=== PATIENT | male | born 1930 | race Caucasian/White ===

== ENCOUNTER 2017-08-21 09:26 | Emergency (ER) | payer OTHER, BC ==
[2017-08-21] MEDS ORDERED: MIDAZOLAM 2 MG/2 ML VIAL ONE (09:27)
[2017-08-21] MEDS ORDERED: PROPOFOL/EMULSION 500 MG/50 ML BOTTLE IV ONE (09:27)
[2017-08-21 09:33] VITALS: RESP 18; TEMP 97.3
[2017-08-21] MEDS ORDERED: SUGAMMADEX SODIUM 200 MG/2 ML VIAL IVP ONE (09:58)
[2017-08-21] MEDS ORDERED: RANITIDINE 50 MG/2 ML VIAL ONE (09:58)
[2017-08-21] MEDS ORDERED: ROCURONIUM 50 MG/5 ML VIAL ONE (09:58)
[2017-08-21] MEDS ORDERED: ACETAMINOPHEN 500 MG TAB PO ONE (10:18)
--- NOTE | 2017-08-21 10:18 | EDPHY ---
H & P Smoking Status: Former smoker Time Seen by Provider: 08/21/17 10:04 HPI/ROS: CHIEF COMPLAINT: Right rib pain HISTORY OF PRESENT ILLNESS: 86-year-old male with medical history significant for mechanical heart valve, daily warfarin, states that 4 days ago he bent over and so felt a "pop "in his right lower ribs at the anterior axillary line. This pain has been reproducible with palpation, inspiration, coughing ever since. No dyspnea. His taken the single Tylenol which alleviates his pain. The pain is not migrated. Denies: Dyspnea, back or flank pain, direct trauma or fall. REVIEW OF SYSTEMS: A ten point review of systems was performed and is negative with the exception of the items mentioned in the HPI PAST MEDICAL & SURGICAL HISTORY: Mechanical heart valve. Daily warfarin. Coronary artery disease. TIA. Subdural hematoma. Cardiac stenting. SOCIAL HISTORY: non smoker PHYSICAL EXAM (Prior to examination, patient consented to physical exam, hands were washed and my usual and customary physical exam procedures followed) 1) GENERAL: Well-developed, well-nourished, alert and oriented. Appears to be in no acute distress. 2) HEAD: Normocephalic, atraumatic 3) HEENT: Pupils equal, round, reactive to light bilaterally. Sclera anicteric. 4) NECK: Full range of motion, no meningeal signs. No bruit 5) LUNGS: Clear auscultation bilaterally, no wheezes, no rhonchi, no retractions. Chest wall shows no visible signs of trauma, no crepitus. He is tender to palpation right lower ribs caudal to the nipple, anterior axillary line. 6) HEART: Regular rate and rhythm, no murmur, no heave, no gallop. 7) ABDOMEN: No guarding, no rebound, no focal tenderness, negative McBurney's, negative Viera's, negative Rovsing's, negative peritoneal sign, specifically no rash upper quadrant pain 8) MUSCULOSKELETAL: Moving all extremities, no focal areas of tenderness, no obvious trauma. No peripheral edema or discoloration. 9) BACK: No CVA tenderness, no midline vertebral tenderness, no fluctuance, no step-off, no obvious trauma, no visual or palpable abnormality. 10) SKIN: No rash, no petechiae. 11) Psychiatric: Patient is oriented X 3, there is no agitation. DIFFERENTIAL DIAGNOSIS: in no particular order including but limited to pneumothorax, rib fracture, rib contusion, sprain, strain (Chio Weber) Constitutional: Initial Vital Signs Temperature (C) 36.3 C 08/21/17 09:29 Heart Rate 80 08/21/17 09:29 Respiratory Rate 18 08/21/17 09:29 Blood Pressure 160/111 H 08/21/17 09:29 O2 Sat (%) 93 08/21/17 09:29 O2 Delivery Mode Room Air Allergies/Adverse Reactions: No Known Allergies Allergy (Verified 08/21/17 09:28) Home Medications: Medication Instructions Recorded Herbals/Supplements -Info Only 1 ea PO DAILY 09/16/16 Lisinopril [Zestril 5 mg (*)] 5 mg PO DAILY 09/16/16 Warfarin Sodium [Coumadin 5MG (*)] 5 mg PO DAILY16 09/16/16 Amlodipine Besylate 08/21/17 oxyCODONE/APAP 5/325 [Percocet 0.5 tab PO Q6 #7 tab 08/21/17 5/325] MDM/Departure - MDM Imaging Results: Images reviewed myself (Chio Weber) Procedures: Procedure: Incentive spirometer Indication: Chest wall pain Indications risks benefits of incentive spirometer discussed with patient instructed on how to use, recommend he use every hour while awake. (Chio Weber) Medications Given: Discontinued Medications Acetaminophen (Tylenol) 1,000 mg PO EDNOW ONE Stop: 08/21/17 10:19 Last Admin: 08/21/17 10:23 Dose: 1,000 mg ED Course/Re-evaluation: 10:18 a.m.: Offered analgesia he requests Tylenol only. Old medical records reviewed. Care of patient under supervision of secondary supervising physician Dr Ortega with whom I discussed care . 11:18 a.m.: Re-evaluation, discussed his chest x-ray and rib x-ray showing no definitive fracture, no pneumothorax. Doubt cardiac etiology. I offered analgesia however he prefers Tylenol only. He has been given incentive spirometer and instructions on how to use this. Do not think that further diagnostic studies are indicated at this time. He feels comfortable being discharged with usual and customary discharge precautions and instructions. ( Chio Weber) The patient was evaluated and managed by the physician psychologist research assistant. I have reviewed this chart and I agree with the findings and plan of care as documented , as indicated by my signature. I am the secondary supervising physician. ( Naa Ortega) - Depart Disposition: Home, Routine, Self-Care Clinical Impression: Rib pain on right side, Rib fracture Condition: Good Instructions: Oxycodone/Acetaminophen (By mouth), Rib Fracture (ED), Chest Wall Pain (ED) Additional Instructions: Return to the ER if you develop new or worsening symptoms, if you develop shortness of breath or any other symptoms that concern you. Use your incentive spirometer every hour while you are awake Adult Pain & Fever Control: We recommend Acetaminophen (Tylenol) and Ibuprofen (Motrin,Advil) for pain and fever control. When fever is high or pain severe, both drugs can be used at the same time, but at different intervals. Please note the time differences. Your dose is: Acetaminophen 650mg every 4 to 6 hours Ibuprofen 600mg every 6 hours with food OR Note: do not take Acetaminophen with Hydrocodone (Vicodin, Lortab) or Oycodone (Percocet). These medications also contain Acetaminophen. No more than 3000mg of Acetaminophen should be taken in 24 hours (for an adult). Prescriptions: oxyCODONE/APAP 5/325 [Percocet 5/325] 0.5 tab PO Q6 #7 tab Referrals: Follow-up, with your primary doctor in 2 days [Other] - As per Instructions
[2017-08-21 11:46] VITALS: BP 123/81; PULSE 73; O2SAT 98
== END 2017-08-21 11:46 | disposition home or self-care (01) ==
DX: S22.31XA Fracture of one rib, right side, initial encounter for closed fracture (principal); X58.XXXA Exposure to other specified factors, initial encounter; Z79.01 Long term (current) use of anticoagulants; I25.10 Atherosclerotic heart disease of native coronary artery without angina pectoris; Z87.891 Personal history of nicotine dependence
CPT/HCPCS: 71020; 71100; 99283; J2250; J2704; J2780

== ENCOUNTER 2017-12-02 16:00 | Inpatient (IN) | payer OTHER, BC ==
--- NOTE | 2017-12-02 16:18 | CPEKG ---
Heart Rate: 86 RR Interval: 698 P-R Interval: 188 QRSD Interval: 134 QT Interval: 416 QTC Interval: 498 P Powell: 9 QRS Powell: -62 T Wave Powell: 78 EKG Severity - ABNORMAL ECG - EKG Impression: SINUS RHYTHM EKG Impression: RBBB AND LAFB EKG Impression: PROBABLE LATERAL INFARCT, OLD Electronically Signed By: Abdi Gibson 02-Dec-2017 17:40:49
[2017-12-02 16:27] LABS: PLATELET COUNT 263 10^3/uL (150-400)
[2017-12-02 16:36] LABS: INR 2.99 (0.83-1.16); PROTIME(PATIENT) 30.9 SEC (12.0-15.0)
[2017-12-02] MEDS ORDERED: NS 1,000 ML IV ONE (16:42)
--- NOTE | 2017-12-02 16:56 | EDPHY ---
H & P Time Seen by Provider: 12/02/17 16:21 HPI/ROS: Chief complaint. Word finding difficulty HPI. 87-year-old male presents emergency department with 1 hr history of word- finding difficulty. He was unable to say the word for shoes. He was unable to recall or say his 's name. He has no headache. Denies change in his vision. Denies focal weakness or paresthesias. He has had similar symptoms previously. The patient is on Coumadin for a mechanical heart valve. Been no recent trauma or head injury though he does have a history of subdural hematoma. He denies chest discomfort or trouble breathing. No illness. No abdominal pain. ROS Constitutional. no fever/chills, no weakness Eyes. no problems with vision ENT. no sore throat, no nasal drainage Cardiovascular. no chest pain Respiratory. no shortness of breath, no cough Abdominal. no abdominal pain, no nausea/vomiting, no diarrhea . no problems urinating MS. no calf pain/swelling, no neck/back pain, no joint pain Skin. no rash Lymph. no swollen glands Neuro. Word finding difficulty Past Medical/Surgical History: Past medical history mechanical heart valve, coronary artery disease, peripheral neuropathy, TIA, BPH, subdural, coronary stents x6 Social History: , nonsmoker, no alcohol Smoking Status: Former smoker Physical Exam: General Appearance: Alert well-developed male mild distress vital signs are stable Eyes: Pupils equal and round no pallor or injection. ENT, Mouth: Mucous membranes are moist. Respiratory: There are no retractions, lungs are clear to auscultation. Cardiovascular: Regular rate and rhythm. Gastrointestinal: Abdomen is soft and nontender, no masses, bowel sounds normal. Neurological: Awake and alert, sensory and motor exams grossly normal. Speech is normal. Cranial nerves are normal. There is no pronator drift. Finger-to- nose and lgav-hv-unol are intact bilateral Skin: Warm and dry, no rashes. Musculoskeletal: Neck is supple nontender. Extremities symmetrical, full range of motion. Psychiatric: Patient is oriented X 3, there is no agitation. Constitutional: Initial Vital Signs Temperature (C) 36.5 C 12/02/17 16:05 Heart Rate 78 12/02/17 16:05 Respiratory Rate 18 12/02/17 16:05 Blood Pressure 185/88 H 02/25/18 16:05 O2 Sat (%) 97 12/02/17 16:05 O2 Delivery Mode Room Air Allergies/Adverse Reactions: No Known Allergies Allergy (Verified 12/02/17 16:05) Home Medications: Medication Instructions Recorded Lisinopril [Zestril 5 mg (*)] 5 mg PO DAILY 09/16/16 Warfarin Sodium [Coumadin 5MG (*)] 5 mg PO DAILY16 09/16/16 amLODIPine BESYLATE [Norvasc 10 mg 10 mg PO DAILY 12/02/17 (*)] Medical Decision Making - Diagnostics EKG Interpretation: EKG interpreted by me shows normal sinus rhythm with normal interval. There is left axis deviation with right bundle in a anterior fascicular blocks. No significant ST elevation or depression. No arrhythmia. The rate is 86 Imaging Results: Imaging Impressions Head CT 12/02/17 16:14 Impression: 1. No acute intracranial findings. 2. Diffuse cerebral atrophy with periventricular and subcortical low attenuation consistent with chronic microvascular ischemic gliosis. 3. Additional findings, as above. Findings discussed with Abdi Gibson MD on December 02, 2017 at [address] shows atrophy and some a cephalomedullary show but no evidence for acute hemorrhage. One-view chest x-ray interpreted by me is normal Procedures: IV normal saline, monitor. [facility] consult. Stroke activation called ED Course/Re-evaluation: Patient is seen immediately by me on arrival as a stroke activation is called. I consulted and discussed the case with [facility] who recommends the noncontrast head CT. They also recommend follow-up CTA of head and neck. The patient however currently has a creatinine of 2.0 so we will hydrate and try to improve his creatinine before further imaging studies with contrast. Serial evaluations in re-evaluation again at 5:00 p.m. The patient is stable and without symptoms. The patient and his family and I discussed imaging, lab, EKG results. We discussed treatment plan including recommendation for admission. He expresses understanding and agreement I consulted and discussed the case with Dr. Vanegas, hospitalist, who agrees to the admission Differential Diagnosis: This would appear to be TIA. As the patient is on anticoagulation and has had past history of subdural hematoma I considered intracranial bleeding as well. Patient has mechanical heart valve. I have considered thromboembolic cause of his word-finding difficulty. He has chronic renal insufficiency current Ebenezer precluding further studies with IV contrast - Data Points Laboratory Results: Laboratory Results 12/02/17 16:15 12/02/17 16:15 12/02/17 12/02/17 12/02/17 16:15 16:15 16:15 WBC 6.96 10^3/uL 10^3/uL (3.80-9.50) RBC 4.52 10^6/uL 10^6/uL (4.40-6.38) Hgb 14.8 g/dL g/dL (13.7-17.5) Hct 43.3 % % (40.0-51.0) MCV 95.8 fL fL (81.5-99.8) MCH 32.7 pg pg (27.9-34.1) MCHC 34.2 g/dL g/dL (32.4-36.7) RDW 12.7 % % (11.5-15.2) Plt Count 263 10^3/uL 10^3/uL (150-400) MPV 9.8 fL fL (8.7-11.7) Neut % (Auto) 58.7 % % (39.3-74.2) Lymph % (Auto) 25.0 % % (15.0-45.0) [place] % (Auto) 11.9 % % (4.5-13.0) Eos % (Auto) 3.7 % % (0.6-7.6) Baso % (Auto) 0.4 % % (0.3-1.7) Nucleat RBC Rel Count 0.0 % % (0.0-0.2) Absolute Neuts (auto) 4.08 10^3/uL 10^3/uL (1.70-6.50) Absolute Lymphs (auto) 1.74 10^3/uL 10^3/uL (1.00-3.00) Absolute Monos (auto) 0.83 10^3/uL H 10^3/uL (0.30-0.80) Absolute Eos (auto) 0.26 10^3/uL 10^3/uL (0.03-0.40) Absolute Basos (auto) 0.03 10^3/uL 10^3/uL (0.02-0.10) Absolute Nucleated RBC 0.00 10^3/uL 10^3/uL (0-0.01) Immature Gran % 0.3 % % (0.0-1.1) Immature Gran # 0.02 10^3/uL 10^3/uL (0.00-0.10) PT 30.9 SEC H SEC (12.0-15.0) INR 2.99 H (0.83-1.16) APTT 53.6 SEC H SEC (23.0-38.0) Sodium 140 mEq/L mEq/L (135-145) Potassium 4.5 mEq/L mEq/L (3.5-5.2) Chloride 102 mEq/L mEq/L (97-110) Carbon Dioxide 22 mEq/l mEq/l (22-31) Anion Gap 16 mEq/L mEq/L (8-16) BUN 37 mg/dL H mg/dL (7-23) Creatinine 2.0 mg/dL H mg/dL (0.7-1.3) Estimated GFR 32 Glucose 102 mg/dL H mg/dL (70-100) Calcium 9.3 mg/dL mg/dL (8.5-10.4) Troponin I 0.013 ng/mL ng/mL (0.000-0.034) Medications Given: Discontinued Medications Sodium Chloride (Ns) 1,000 mls @ 0 mls/hr IV ONCE ONE; Wide Open PRN Reason: Protocol Stop: 12/02/17 16:43 Last Admin: 12/02/17 16:45 Dose: 1,000 mls Departure - Departure Disposition: [facility] Inpatient Acute Clinical Impression: Elevated serum creatinine Transient cerebral ischemia Qualifiers: Transient cerebral ischemia type: unspecified Qualified Code(s): G45.9 - Transient cerebral ischemic attack, unspecified Condition: Fair Referrals: Lay Newberry MD [Primary Care Provider] - As per Instructions
[2017-12-02] MEDS ORDERED: PROMETHAZINE HCL 25 MG/ML INJ IVP PRN (20:10)
[2017-12-02] MEDS ORDERED: ASPIRIN 325 MG TAB PO SCH (20:15)
--- NOTE | 2017-12-02 20:40 | GHP ---
[f rep st] HISTORY AND PHYSICAL DATE OF ADMISSION: 12/02/2017 PRIMARY CARE PROVIDER: Dr. Lorraine Meyers. CHIEF COMPLAINT: Garbled speech. HISTORY OF PRESENT ILLNESS: The patient is a pleasant 87-year-old gentleman with a past medical hist ory of a mechanical aortic valve replacement as well as coronary artery disease, status post multiple stents, and chronic kidney disease stage 3, who was brought to the [facility] Emergency Room by his and daughter after they noted him having garbled speech and difficulty in finding co mmon words. The symptoms lasted for approximately 45 minutes, and they brought him into the emergenc y room. His states that symptoms mostly resolved after coming to the emergency room, but she olivera s noted brief episodes where he has garbled speech, but the symptoms overall seem to be improving. In the emergency room, Neurology was consulted. The patient is on Coumadin for anticoagulation in essentia healtht of his mechanical aortic valve. He is appropriately anticoagulated with an INR of 2.9. However, with the anticoagulation, tPA was contraindicated. He had a CT scan of his head, which did not show any acute findings or bleeding, but due to his presentation, he is being admitted for further evalua tion and monitoring. PAST MEDICAL HISTORY: 1. History of TIAs. 2. Coronary artery disease with history of stent placements x6 in the past. 3. Atrial fibrillation, paroxysmal. 4. Mechanical aortic valve replacement due to aortic stenosis. 5. Hypertension. 6. Chronic kidney disease stage 3, with baseline creatinine approximately 1.6. PAST SURGICAL HISTORY: Aortic valve replacement. MEDICATIONS: 1. Coumadin 5 mg daily. 2. Lisinopril 5 mg daily. 3. Amlodipine 10 mg daily. ALLERGIES: No known drug allergies. FAMILY HISTORY: Mother and father are both . His father had a history of strokes and heart disease. Mother from "old age" in her 80s. SOCIAL HISTORY: The patient is a nonsmoker. He previously smoked socially over 50 years ago. He is currently . He has 4 children. His power of lip reading teacher will be his daughter. CODE STATUS: Reviewed during this hospitalization and he states that he would be okay with an attemp t at resuscitation if he were found within a 15-minute period of time of losing a heartbeat, but stat es that if he were found down longer than that period of time, he would not want to have a resuscitat ion performed. REVIEW OF SYSTEMS: CONSTITUTIONAL: No complaints of any fevers or chills. ENT: No recent upper re spiratory illnesses. CARDIOVASCULAR: No complaints of chest pains, palpitations or syncopal episode s. RESPIRATORY: No complaints of shortness of breath or productive cough. GI: No abdominal pain, nausea, vomiting, diarrhea, or constipation. : No report of any difficulty with urination. NEURO LOGIC: Other than garbled speech and word finding today, no focal weakness or asymmetry noted by hector urbano. HEMATOLOGIC: No history of any deep vein thrombosis or pulmonary embolism. PSYCHIATRIC: No h istory of anxiety or depression. ENDOCRINE: No history of diabetes or thyroid abnormalities. SKIN: No new skin rashes. MUSCULOSKELETAL: No focal joint pains. PHYSICAL EXAM: VITAL SIGNS: Temperature 35.8. Blood pressure initially 185/88, and improved to 168 /70. Heart rate is 81, respirations 16, saturating 95% on room air exam. GENERAL: Patient resting comfortably in bed. He is awake, alert, conversant, and able to provide a good history. Seems orien richard. No speech abnormalities noted: HEENT: Extraocular movements intact. Pupils equal. No sclera l icterus. Mucous membranes moist. NECK: Supple. No adenopathy. No thyroid enlargement. No avilez tid bruit appreciated. CHEST: Clear on auscultation with normal respiratory effort. HEART: Systol ic click consistent with aortic valve replacement, otherwise regular. No other murmurs appreciated. ABDOMEN: Soft, nontender, nondistended. : No Peace catheter in place. EXTREMITIES: No signifi cant pitting edema. NEUROLOGIC: Cranial nerves 2-12 appear intact, and strength 5/5 in extremities. LABS: White blood cell count 6, hemoglobin 14, platelets 263. Sodium 140, potassium 4.5, chloride 103, bicarb 22, BUN 37, creatinine 2.0, glucose of 102. INR 2.9. Troponin 0.013. Chest x-ray: No acute findings. CT head, as detailed in the HPI. ASSESSMENT AND PLAN: 1. Suspected transient ischemic attack. The patient's symptoms certainly are consistent with transi ent ischemia. Teleneurology was consulted in the emergency room. CT angiography of the head and nec k was recommended. However, with his elevated creatinine this was deferred for right now. We will h ydrate with intravenous fluids overnight, reassess in the morning, and then reconsider CT imaging wit h contrast. Otherwise, will order an MRI without contrast and ultrasound of the carotid arteries, as well as an echocardiogram. Neuro checks throughout the evening time. Will administer a dose of asp irin, if not already given in the emergency room, and add statin therapy. Will check lipids with [facility] labs as well. 2. Acute kidney injury on top of chronic kidney disease. His recent creatinine values have mostly r anged from 1.6 to 1.9, today being 2.0. There may be some element of hypovolemia. Will reassess in the morning after intravenous fluids tonight. 3. Aortic valve replacement. Patient has a mechanical aortic valve for aortic stenosis. This was p erformed in the . Continue with Coumadin to a goal INR between 2.5 and 3.5. 4. Coronary artery disease, history of multiple stents. I do not see any statin allergy on his eduardo rgy list. I do not see that he is on statin therapy. We will add atorvastatin at this time. 5. Atrial fibrillation, history of. Sounds regular on exam. Dr. Leary has consulted on this case in the past. Continue with anticoagulation. 6. Hypertension. We will plan on continuing current lisinopril and amlodipine. 7. Deep venous thrombosis prophylaxis. Patient is anticoagulated. 8. Disposition. I will admit him under an inpatient status. He may be here for over 2 midnights, p jf 3-5 days. /[id number]/MODL
[2017-12-02] MEDS: ATORVASTATIN CALCIUM 40 MG TAB PO SCH (22:15)
[2017-12-02] MEDS: NS 1,000 ML IV SCH (22:16)
[2017-12-03] MEDS ORDERED: WARFARIN SODIUM 5 MG TAB PO SCH ×2 (01:49→20:00)
[2017-12-03 04:58] LABS: PLATELET COUNT 206 10^3/uL (150-400)
[2017-12-03 05:07] LABS: INR 3.14 (0.83-1.16); PROTIME(PATIENT) 32.1 SEC (12.0-15.0)
[2017-12-03] MEDS ORDERED: IOPAMIDOL (ISOVUE 370) 100 ML BTL IV ONE ×2 (10:28→12:24)
[2017-12-03] MEDS ORDERED: Herbals/Supplements -Info Only PO SCH (10:30)
[2017-12-03] MEDS: ATORVASTATIN CALCIUM 40 MG TAB PO SCH (11:43)
[2017-12-03] MEDS: ASPIRIN 81 MG CHEWABLE TAB PO SCH (11:43)
--- NOTE | 2017-12-03 12:56 | SOAPPROG ---
[facility] Progress Note Assessment/Plan: Assessment: 87-YEAR-OLD MALE WITH RECENT TIA AND HISTORY OF 2 OTHER TIA EPISODE FOUND TO HAVE A CRITICAL LEFT CAROTID STENOSIS ON ULTRASOUND PRESENTLY ALERT NEUROLOGICALLY INTACT WITH NO RESIDUAL SYMPTOMS PAST HISTORY OF TIAS, HYPERTENSION, AORTIC VALVE REPLACEMENT, ANTICOAGULATION, INTERMITTENT ATRIAL FIBRILLATION HEENT WITH NO BRUITS CHEST CLEAR COR REGULAR RHYTHM WITH AORTIC VALVE MURMUR NEUROLOGIC EXAM IN SEEMS TO BE PHYSIOLOGIC AT THIS TIME IMPRESSION CRITICAL LEFT CAROTID STENOSIS LIKELY CAUSE FOR HIS TIAS ALTHOUGH HE DOES HAVE INTERMITTENT ATRIAL FIBRILLATION AND ANTICOAGULATION WHICH COULD AND HYPERTENSION WHICH ALL COULD CONTRIBUTE TO A TIA Plan: WOULD RECOMMEND A CT ANGIOGRAM AND PROBABLE LEFT CAROTID ENDARTERECTOMY DEPENDING ON THE RESULTS OF THE CTA/RISKS AND OPTIONS FULLY DISCUSSED WITH THE PATIENT HIS 12/03/17 12:53 Objective: Vital Signs Temp Pulse Resp BP Pulse Ox 36.7 C 80 17 125/72 H 94 12/03/17 11:45 12/03/17 11:45 12/03/17 11:45 12/03/17 11:45 12/03/17 11:45 Laboratory Results 12/03/17 04:25 12/03/17 04:25 12/02/17 12/03/17 12/04/17 05:59 05:59 05:59 Intake Total 1000 Output Total 950 400 Balance 50 -400 PT 32.1 SEC (12.0-15.0) H 12/03/17 04:25 INR 3.14 (0.83-1.16) H 12/03/17 04:25 ICD10 Worksheet Patient Problems: Problems Problem Status Onset Elevated serum creatinine Acute Transient cerebral ischemia Acute Atrial fibrillation Acute CAD (coronary artery disease) Acute Chest pain Acute Chest pain in adult Acute Coronary artery disease Acute H/O mechanical aortic valve replacement Acute History of right coronary artery stent placement Acute Troponin level elevated Acute
--- NOTE | 2017-12-03 16:40 | ASMTCMCOM ---
CM Note CM Note Notes: Pt admitted with TIA. He has a hx of TIAs, CAD, stents, CKD. PT/SLT have cleared, OT recommending home care. Spoke with pt and his family. They do not want home care at this time and feel pt is back to his baseline. Anticipate d/c with no CM needs. Surgery has recommended a CT angiogram which pt is considering. Date Signed: 12/03/2017 04:39 PM Electronically Signed By:ENEDELIA Lo
--- NOTE | 2017-12-03 19:24 | HOSPPROG ---
Hospitalist Progress Note Assessment/Plan: Assessment: 87-year-old male presents with acute TIA in the setting of severe carotid stenosis, mechanical aortic valve replacement Plan: 1. TIA. Acute, evidenced by expressive aphasia of greater duration than previous episodes, most likely secondary to ipsilateral severe carotid stenosis -MRI demonstrating possible old CVA in left frontal area which would correspond to previous expression of symptoms, but no evidence of acute CVA -currently monitoring telemetry -LDL 123, goal less than 70, recommend statin, counseled patient regarding this -currently on systemic anticoagulation for mechanical aortic valve -carotid ultrasounds demonstrating right-sided 50-70% stenosis, left-sided greater than 90% stenosis, increased since 2010 -discussed with Dr. Michael Patiño, he recommended CT angiogram, obtained, confirms left-sided 90% stenosis at the left carotid bulb -discussed with Dr. Chambers, he recommends considering CEA given the TIA which is most likely related to this level of stenosis and he will consult with the patient to convey this message to him tomorrow a.m. -counseled the patient extensively regarding the plan above 2. Mechanical aortic valve replacement. Patient reports a degree of valvular impairment and he is not interested in further valve surgeries, has a goal INR between 2.5 - 3.5 -echocardiogram currently pending -last Coumadin dose 2/24 pm, currently holding so that it can downtrend to a safe level to perform surgery if the patient does agree to CEA which has been recommended -continue monitor daily INR, currently does not require bridging therapy as his INR is 3.1 -if the patient is to have surgery during this episode of care, would recommend heparin drip for perioperative anticoagulation given his chronic kidney disease 3. Acute kidney injury on chronic kidney disease stage 3. Most likely secondary to initial hypovolemia in the setting of his acute TIA, patient's baseline creatinine is around 1.6, and is down trended with IV fluids and holding his ANUSHA -inhibitor -continue to monitor creatinine level, particularly since he has received IV contrast, and continue to hold ANUSHA-inhibitor for the next [address]ogram -if systolic blood pressures consistently ranging greater than 180, will consider antihypertensive Diet. Regular Prophylaxis. High risk patient, currently anticoagulated Code. Full Disposition. Anticipated discharge uncertain this time, anticipated length stay is greater than 48 hr for reasonable medical necessity including TIA in the setting of high risk severe carotid stenosis requiring CEA urgently. Subjective: Patient's symptoms have resolved Objective: Vital Signs Temp Pulse Resp BP Pulse Ox 36.8 C 78 24 H 142/81 H 95 12/03/17 15:31 12/03/17 15:31 12/03/17 15:31 12/03/17 15:31 12/03/17 15:31 Laboratory Results 12/03/17 04:25 12/03/17 04:25 12/02/17 12/03/17 12/04/17 05:59 05:59 05:59 Intake Total 1000 400 Output Total 950 400 Balance 50 0 PT 32.1 SEC (12.0-15.0) H 12/03/17 04:25 INR 3.14 (0.83-1.16) H 12/03/17 04:25 - Time Spent With Patient Time Spent with Patient: greater than 35 minutes Time Spent with Patient: Greater than 35 minutes spent on this patients care, greater than 50% of time spent counseling, educating, and coordinating care regarding the above mentioned plan. - Physical Exam Constitutional: no apparent distress, not in pain, chronically ill appearing, No uncomfortable Cardiovascular: systolic murmur (1/6 at the sternum with closing snap), carotid bruit (Faint in left), edema (Trace bilateral lower extremities, left greater than right), No tachycardia Skin: other (Hyperpigmentation bilateral lower extremities) Neurologic: AAOx3, other (Moving all 4 extremities, no expressive aphasia, occasional evidence of thought blocking) Psychiatric: not encephalopathic, anxious, No agitated ICD10 Worksheet Patient Problems: Problems Problem Status Onset Chest pain Acute Coronary artery disease Acute History of right coronary artery stent placement Acute Atrial fibrillation Acute H/O mechanical aortic valve replacement Acute Chest pain in adult Acute CAD (coronary artery disease) Acute Troponin level elevated Acute Transient cerebral ischemia Acute Elevated serum creatinine Acute
[2017-12-03] MEDS: CHOLECALCIFEROL VIT D3 2,000 UNITS TAB/CAP PO SCH (20:50)
[2017-12-03] MEDS: ASCORBIC ACID 500 MG TAB PO SCH (20:50)
[2017-12-03] MEDS ORDERED: NON-FORMULARY NEW DRUG (Ascorbic Acid [Vitamin C] 1,000 MG) PO SCH (21:00)
--- NOTE | 2017-12-03 21:17 | SOAPPROG ---
[facility] Progress Note Assessment/Plan: Assessment: 87-YEAR-OLD MALE WITH RECENT TIA AND HISTORY OF 2 OTHER TIA EPISODE FOUND TO HAVE A CRITICAL LEFT CAROTID STENOSIS ON ULTRASOUND PRESENTLY ALERT NEUROLOGICALLY INTACT WITH NO RESIDUAL SYMPTOMS PAST HISTORY OF TIAS, HYPERTENSION, AORTIC VALVE REPLACEMENT, ANTICOAGULATION, INTERMITTENT ATRIAL FIBRILLATION HEENT WITH NO BRUITS CHEST CLEAR COR REGULAR RHYTHM WITH AORTIC VALVE MURMUR NEUROLOGIC EXAM IN SEEMS TO BE PHYSIOLOGIC AT THIS TIME IMPRESSION CRITICAL LEFT CAROTID STENOSIS LIKELY CAUSE FOR HIS TIAS ALTHOUGH HE DOES HAVE INTERMITTENT ATRIAL FIBRILLATION AND ANTICOAGULATION WHICH COULD AND HYPERTENSION WHICH ALL COULD CONTRIBUTE TO A TIA Plan: WOULD RECOMMEND A CT ANGIOGRAM AND PROBABLE LEFT CAROTID ENDARTERECTOMY DEPENDING ON THE RESULTS OF THE CTA/RISKS AND OPTIONS FULLY DISCUSSED WITH THE PATIENT HIS 12/03/17 12:53 12/03/17 21:15 CTA CONFIRMS A GREATER THAN 90% LEFT CAROTID STENOSIS BUT NO DEFINITE CVA DEMONSTRATED ON BRAIN MRI LENGTHY DISCUSSION WITH THE FAMILY ABOUT THE RISKS AND OPTIONS OF SURGERY AND HAVE RECOMMENDED LEFT CAROTID ARTERECTOMY. WE WOULD NEED A CARDIAC EVALUATION WITH HIS HISTORY OF AORTIC VALVE PROBLEMS AND CONGESTIVE HEART FAILURE. I THINK HIS LONGEVITY IS GREATER ENOUGH TO WARRANT THE STROKE PREVENTION WITH A LEFT CAROTID ENDARTERECTOMY Objective: Vital Signs Temp Pulse Resp BP Pulse Ox 36.9 C 73 21 H 141/71 H 91 L 12/03/17 20:00 12/03/17 20:00 12/03/17 20:00 12/03/17 20:00 12/03/17 20:00 Laboratory Results 12/03/17 04:25 12/03/17 04:25 12/02/17 12/03/17 12/04/17 05:59 05:59 05:59 Intake Total 1000 400 Output Total 950 400 Balance 50 0 PT 32.1 SEC (12.0-15.0) H 12/03/17 04:25 INR 3.14 (0.83-1.16) H 12/03/17 04:25 ICD10 Worksheet Patient Problems: Problems Problem Status Onset Elevated serum creatinine Acute Transient cerebral ischemia Acute Atrial fibrillation Acute CAD (coronary artery disease) Acute Chest pain Acute Chest pain in adult Acute Coronary artery disease Acute H/O mechanical aortic valve replacement Acute History of right coronary artery stent placement Acute Troponin level elevated Acute
[2017-12-04 05:15] LABS: PLATELET COUNT 218 10^3/uL (150-400)
[2017-12-04 05:25] LABS: INR 2.26 (0.83-1.16)
--- NOTE | 2017-12-04 08:33 | PDMN ---
Medical Necessity Medical necessity: est los>2mn for eval and rx of suspected TIA w/episodes of garbled speech, and LUIZA on CKD; admit for further w/u, deferred r/t elevated creat, IVF, neuro checks; comorbid CAD, afib, htn, hx AVR on AC; per order and H &P 12/02/17
[2017-12-04] MEDS: ASPIRIN 81 MG CHEWABLE TAB PO SCH (08:45)
[2017-12-04] MEDS: ATORVASTATIN CALCIUM 40 MG TAB PO SCH (08:45)
[2017-12-04] MEDS ORDERED: HEPARIN 10,000 UNIT/10 ML MDV (1,000 UNIT/ML) IVP PRN (09:15)
[2017-12-04 10:32] LABS: PLATELET COUNT 250 10^3/uL (150-400)
[2017-12-04 10:40] LABS: INR 1.91 (0.83-1.16)
[2017-12-04] MEDS: HEPARIN/DEXTROSE 500 ML IV SCH (11:00)
--- NOTE | 2017-12-04 11:45 | NEUROPROG ---
Assessment: HOSPITAL NEUROLOGY CONSULT REQUESTING: Carlos Gomez MD REASON: TIA, carotid stenosis HPI: 87 year old right-handed man admitted 12/02 with a TIA. He has a background of PAF< CAD with stents, mechanical AVR, HTN, HLD, prior TIAs. On day of admission the patient experienced a 45 minute episode of expressive language dysfunction. He knew what he wanted to say but couldn't get the words produced correctly. He denies any other symptoms. He has experienced several similar episodes over the years. He was being worked up for his TIA here and CTA head/neck discovered 90% stenosis of the LICA. 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 Vascular surgery has been consulted for this finding, which is very suspect to be culprit in his symptoms. He is anticoagulated for his AVR and PAF. He has previously been on statin but stopped due to some odd symptoms (felt his toes hurt). He takes anti-HTN medication. He is currently being evaluated from a CV standpoint for presurgical risk stratification. He adamantly refuses to participate in cardiac testing like stress test. He tells me he thinks cardiac testing will give him a heart attack , and that if he wants the surgery he'll compel the surgeon to perform no matter the risk. ROS: As per the HPI, otherwise a complete 12 point ROS was performed and is negative ALLERGIES AND MEDS: As recorded in the EMR - reviewed and reconciled PFSH: As per the intake H&P by Dr. Vanegas from 12/02 EXAM: VS reviewed in EMR GEN: WDWN laying in NAD HEENT: NCAT, sclera anicteric, conjunctiva not injected, MMM, oropharynx clear, no scalp tenderness NECK: supple, nontender, no meningismus CV: RRR s1 s2 w systolic click. Carotid pulses 2+ wo bruit NEURO: MS: awake, alert, oriented to all spheres. Speech nondysarthric. No language disturbance. Follows commands. Attends to both sides. Recent/remote memory grossly intact. Mood euthymic. Good fund of knowledge. Seemingly poor insight. CN: pupils 3mm round and reactive. Fundi with sharp discs. VFF. Primary gaze centered. Full ocular motility. Facial sensation preserved. Face symmetric. Hearing grossly intact to finger rub. Palatoglossal movements intact. Shoulder shrug and head turn strong. MOTOR: normal bulk/tone. No adventitial movements. Full power throughout with exception of trace bilateral hip flexor weakness. SENSORY: diminished sensation in both feet, but otherwise intact/symmetric LT/ PP in extremities. No extinction. COORD: no ataxia FN/HS. Yohannes preserved. REFLEX: plantars down. No clonus. Absent ankle jerks and patellars, BUE DTRS 1 /4. GAIT: deferred to PT safety eval DATA REVIEW: Labs reviewed in EMR LDL 123 PERSONALLY INTERPRETED RESULTS AND DATA: CTA head neck per HPI MRI brain wo per HPI IMPRESSION AND RECOMMENDATIONS: // TIA // LICA STENOSIS // HTN // HLD // PAF // AVR // CAD Patient with repeated episodes of expressive aphasia certainly concerning for TIA. This would localize to the left hemisphere. His LICA stenosis is likely culprit. I do agree with CEA, but this would need to be undertaken in the safest fashion. He is averse to cardiac risk stratification testing. I advised he reconsider. Cardiology is going to consult. Dr. Patiño with vascular surgery already on the case. Otherwise, from a maximum medical therapy standpoint, he should continue anticoagulation. High intensity statin therapy added, with goal LDL < 70. Goal normotension - of the utmost importance. Check A1c for goal < 6.5 - can be done outpatient. PT/OT/EGG CANDLER consults. Stroke education. Will sign off. Recall PRN. Objective: Vital Signs Temp Pulse Resp BP Pulse Ox 36.4 C 77 13 148/74 H 96 12/04/17 11:36 12/04/17 11:36 12/04/17 11:36 12/04/17 11:36 12/04/17 11:36 Laboratory Results 12/04/17 10:25 12/04/17 05:00 12/03/17 12/04/17 12/05/17 05:59 05:59 05:59 Intake Total 1000 400 Output Total 950 1000 Balance 50 -600 PT 22.0 SEC (12.0-15.0) H 12/04/17 10:25 INR 1.91 (0.83-1.16) H 12/04/17 10:25 Allergies/Adverse Reactions: No Known Allergies Allergy (Verified 12/02/17 16:05)
--- NOTE | 2017-12-04 14:49 | GCON ---
[f rep st] CONSULTATION CARDIOVASCULAR CONSULTATION CHIEF COMPLAINT: Abnormal speech. HISTORY AND PRESENT ILLNESS: The patient was admitted to the hospital on 12/02/2017, after having an episode of difficulty speaking. His memory was not good. He could not remember the name of his car . He did not remember his 's name. He did not remember the name of one of their children. He h ad good motor abilities at the time according to his . It lasted over 10, maybe 15 minutes, and then shortly he came back to normal, and then it occurred shortly after that a second time. He has h ad multiple episodes of this. In the last year, he has had episodes that would last 15 seconds to a minute where he could not speak right. The patient has a history of hypertension, has known coronary artery disease. He has hyperlipidemia. He says that he has no diabetes. He has no history of myocardial infarction. He has no family histo ry of premature coronary disease. He has no history of hyperuricemia, smoking, or obesity. He has been seen by Dr. Red Haskins, and he has received 9 stents over the years. These went in over the last 15 years, and he never had a myocardial infarction. His last stent was several years ago. He has no orthopnea, PND. He is slow to walk and has some shortness of breath if he rushes, but he c an easily walk for 20-40 minutes at a slow pace on a flat surface. He says he actually runs on the [email or web address], but his of 50 years says that she has never seen him run. It is not clear where the germaine longo lies in that dichotomous situation. The patient has known hyperlipidemia. He has taken statins for over 20 years, and he stopped 5 years ago. He does take his medications. He has been told in the past before cataract surgery that he needed to undergo nuclear stress testing , and he elected not to do that and proceeded with his surgery without the consent of Cardiology. His situation now is that he wants to have a carotid endarterectomy and refuses any kind of cardiovas cular testing. He has no other new complaints. He is back to his baseline neurologically. Intermittently in the past he has had atrial fibrillation. He had his aortic valve replaced with a m echanical valve due to aortic stenosis. He has had chronic kidney disease with creatinines in the 1. 6 to 2.0 range. 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 He has no other major complaints at this time. REVIEW OF SYSTEMS: 10-point review of systems negative except as noted in the chart and as noted abo ve. MEDICATIONS: Aspirin, amlodipine, lisinopril, Coumadin. ALLERGIES: He has never been found to be allergic to medications. SOCIAL HISTORY: He is a gentleman who grew up in the [place] and went to high school there. He went t o the [employer] [facility] [employer] in [place]. 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 He loved his work and has been retired si aze 1994. He has 4 children who are healthy. He lives with his of 50 years. He exercises 2 ti mes a week right now, but normally he often walks for 40 minutes he says and has no problems. He does not smoke. He does not drink significant amounts of alcohol. PHYSICAL EXAMINATION: VITAL SIGNS: His blood pressure is 165/70, heart rate is 88, respirations are 14. GENERAL: He is comfortable in the hospital bed. He is very pleasant. HEENT: Reveals pupils that are status post full iridectomies. HEAD AND NECK: Supple. CARDIOVASCULAR: Reveals systolic e jection murmur and a click and prosthetic heart sounds. PULMONARY: Reveals rhonchi bilaterally. No rales, wheezing, or dullness. ABDOMEN: Soft, nontender without organomegaly. EXTREMITIES: Reveal no edema or tenderness. SKIN: Reveals age-related changes. PSYCH: No obvious anxiety or depressi on. NEUROLOGIC: Grossly intact. LAB VALUES: Show creatinine of 2, BUN of 37, glucose of 102. INR is 2.9. Troponin is 0.013. Chest x-ray was negative, and CTA that he had done of his neck is attached. There is mild left subclavian artery stenosis, greater than 90% stenosis of the left carotid bulb and origin of the left internal carotid arteries due to a large aggregate of calcified plaque, moderate stenosis involving the origin of the right internal carotid due to mixed calcified and noncalcified plaque. Vertebral arteries ar e widely patent. He has a small 0.5 cm nodule in the thyroid that is being evaluated. He has degene rative disk disease, especially at C5-C6, C6-C7. 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 Brain MRI shows probable sequelae of an old small infarct in the pos terior left frontal lobe. Mild periventricular and deep hemispheric white matter changes could be se en with small vessel ischemic disease. No findings for acute infarction. Generalized cerebral atrop hy. Electrocardiogram is sinus rhythm, right bundle-branch block, left anterior fascicular block, possibl e lateral infarct. ASSESSMENT AND PLAN: 1. Cerebrovascular disease. 2. Multiple transient ischemic attacks. 3. Dyslipidemia. 4. Hypertension. 5. Severe coronary artery disease. 6. Aortic valve replacement. 7. Paroxysmal atrial fibrillation. This patient wants to have a carotid endarterectomy. He has severe vascular disease and is symptomat ic. I would proceed with surgery. Now, I have spent over half an hour with him and his just ta lking about the risks of surgery and the options and the preoperative clearance process. As cardiolo gists, we would like to be able to know that his anatomy is okay prior to going into this big surgery . He, however, does not want to do any cardiovascular testing, a stress test or an angiogram. He olivera s made up his mind he is never going to have another stent, and he is able to walk quite well for 20- 30 minutes at a low pace without any cardiovascular symptoms, claudication, or other problems. He olivera s no chest pain, jaw pain, arm pain. He has not had any shortness of breath. Dr. Haskins has put in 9 stents and, in the past when he needed stents, he usually had symptoms that were quite bothersome to him. He is having none of those symptoms now. He also in the past has had times when Dr. Haskins just found things and then fixed him before he had symptoms. He has nothing to suggest an acute coronary syndrome. Nothing to suggest congestive heart failure. So he should be an acceptable risk. He can certainly do 4 METS worth of work and maybe 6 METS worth of work with no cardiovascular symptoms, and he should be able to get through surgery quite well. Obviously he is at high risk because he has significant cerebrovascular disease. He has had at least a stroke in the past. He has had atrial fibrillation. He has a valve replacement; however, as I sa id, he and his both accept the significant risk of having something go wrong. He does not want to be maintained in a vegetative state with artificial nutrition or machines should things go wrong. He said that his daughter will be [id number] and will make his decisions for him and is very good about this. His also agrees with this approach. So, at this time, I will clear him for andrews rgery. He and his fully understand the risks, and I think that he may have a very, very good re sult. It certainly makes sense to operate on him with this high degree of obstruction present. I will follow him with you. I have talked to Dr. Patiño about this, and I think the patient should do very, very well. /[id number]/MODL
--- NOTE | 2017-12-04 20:07 | HOSPPROG ---
Hospitalist Progress Note Assessment/Plan: Assessment: 87-year-old male presents with acute TIA in the setting of severe carotid stenosis, mechanical aortic valve replacement, known CAD Plan: 1. TIA. Acute, evidenced by expressive aphasia of greater duration than previous episodes, most likely secondary to ipsilateral severe carotid stenosis -LDL 123, goal less than 70, recommend statin, counseled patient regarding this 2. Severe L carotid stenosis. Chronic, resulting in recurrent TIAs -currently on systemic anticoagulation for mechanical aortic valve, requiring bridging heparin gtt (re: CKD) and will need to be held prior to surg by 6hrs -Dr. Patiño recommended CEA to patient, coordinated Cards consult to eval life expectancy from CHF and gauge whether surgical intervention will be of benefit to patient (Dr. Joseph agreed that it would be), neuro concurred -able to accomplish reasonable METs at baseline, positive prognostic indicator -remains at risk of post-operative complications (CHF, valve thrombosis, LUIZA on CKD) and counseled patient regarding these -counseled patient that CEA can be performed tomorrow, and patient chooses to proceed w/o further cardiac risk stratification 3. Mechanical aortic valve replacement. Patient reports a degree of valvular impairment and he is not interested in further valve surgeries, has a goal INR between 2.5 - 3.5 -recommend ongoing heparin drip for perioperative anticoagulation given his chronic kidney disease -daily INR -cont hold coumadin 4. Acute kidney injury on chronic kidney disease stage 3. Most likely secondary to initial hypovolemia in the setting of his acute TIA, patient's baseline creatinine is around 1.6, and is down trended with IV fluids and holding his ANUSHA -inhibitor -cont to monitor Diet. Regular Prophylaxis. High risk patient, currently anticoagulated Code. Full Disposition. Anticipated discharge uncertain this time, anticipated length stay is greater than 48 hr for reasonable medical necessity including TIA in the setting of high risk severe carotid stenosis requiring CEA urgently. Subjective: no reoccurence of symptoms Objective: Vital Signs Temp Pulse Resp BP Pulse Ox 36.5 C 81 20 153/83 H 98 12/04/17 15:40 12/04/17 15:40 12/04/17 15:40 12/04/17 15:40 12/04/17 15:40 Laboratory Results 12/04/17 10:25 12/04/17 05:00 02/26/18 02/27/18 02/28/18 05:59 05:59 05:59 Intake Total 1000 400 Output Total 950 1000 Balance 50 -600 PT 22.0 SEC (12.0-15.0) H 12/04/17 10:25 INR 1.91 (0.83-1.16) H 12/04/17 10:25 - Time Spent With Patient Time Spent with Patient: greater than 35 minutes Time Spent with Patient: Greater than 35 minutes spent on this patients care, greater than 50% of time spent counseling, educating, and coordinating care regarding the above mentioned plan. - Physical Exam Constitutional: no apparent distress, not in pain, chronically ill appearing, No uncomfortable Cardiovascular: systolic murmur (I/ at sternum w/ closing snap), edema (trace bilat LE), No irregularly irregular, No tachycardia Respiratory: no respiratory distress, no rales or rhonchi, clear to auscultation Gastrointestinal: normoactive bowel sounds, soft, non-tender abdomen, no palpable masses Skin: other (hyperpigmentation bilt LE) Neurologic: AAOx3 Psychiatric: interacting appropriately, not anxious, not encephalopathic, thought process linear ICD10 Worksheet Patient Problems: Problems Problem Status Onset Chest pain Acute Coronary artery disease Acute History of right coronary artery stent placement Acute Atrial fibrillation Acute H/O mechanical aortic valve replacement Acute Chest pain in adult Acute CAD (coronary artery disease) Acute Troponin level elevated Acute Transient cerebral ischemia Acute Elevated serum creatinine Acute
[2017-12-04] MEDS: CHOLECALCIFEROL VIT D3 2,000 UNITS TAB/CAP PO SCH (23:18)
[2017-12-04] MEDS: ASCORBIC ACID 500 MG TAB PO SCH (23:18)
[2017-12-05 06:48] LABS: PLATELET COUNT 216 10^3/uL (150-400)
[2017-12-05 06:57] LABS: INR 1.78 (0.83-1.16); PROTIME(PATIENT) 20.8 SEC (12.0-15.0)
[2017-12-05] MEDS: HEPARIN/DEXTROSE 500 ML IV SCH (09:05)
[2017-12-05] MEDS: ATORVASTATIN CALCIUM 40 MG TAB PO SCH (09:11)
[2017-12-05] MEDS ORDERED: ceFAZolin 2 GM/SWFI 2 GM/20 ML SYR IVP ONE (09:18)
[2017-12-05] MEDS ORDERED: BACITRACIN ZINC 14.2 GM OINTTUBE TP ONE (09:46)
[2017-12-05] MEDS ORDERED: THROMBIN (BOVINE) 20,000 UNIT SPRAY TP ONE (09:47)
[2017-12-05] MEDS ORDERED: PROTAMINE SULFATE 50 MG/5 ML VIAL IVP ONE (09:47)
[2017-12-05] MEDS ORDERED: BUPIVACAINE 0.5% 10 ML SDV ONE (09:47)
[2017-12-05] MEDS: ASPIRIN 81 MG CHEWABLE TAB PO SCH (10:33)
--- NOTE | 2017-12-05 11:36 | PDANEPAE ---
ANE Past Medical History - Cardiovascular History Hx Hypertension: Yes Hx Arrhythmias: Yes Hx Coronary Artery / Peripheral Vascular Disease: Yes Hx CHF / Valvular Disease: Yes - Pulmonary History Hx Oxygen in Use at Home: No Hx Sleep Apnea: No Sleep Apnea Screening Result - Last Documented: Negative - Endocrine History Hx Diabetes: No - Chronic Pain History Chronic Pain: No ANE Review of Systems Review of Systems: ANE Patient History - Allergies Allergies/Adverse Reactions: No Known Allergies Allergy (Verified 12/02/17 16:05) - Home Medications Home Medications: Lisinopril [Zestril 5 mg (*)] 5 mg PO DAILY 09/16/16 [Last Taken 12/02/17] Warfarin Sodium [Coumadin 5MG (*)] 5 mg PO DAILY@199909/16/16 [Last Taken 12/01] Ascorbic Acid [Vitamin C] 1,000 mg PO HS 12/02/17 [Last Taken 12/01/17] Aspirin [Aspirin 81mg (*)] 81 mg PO DAILY 12/02/17 [Last Taken 11/25/17] Cholecalciferol Vit D3 [Vitamin D3 2000 units tab (OTC)] 2,000 units PO HS 12/02 [Last Taken 12/01/17] Herbals/Supplements -Info Only 1 ea PO DAILY 12/02/17 [Last Taken Unknown] amLODIPine BESYLATE [Norvasc 2.5 mg (*)] 2.5 mg PO DAILY 12/02/17 [Last Taken ] - NPO status NPO Since - Liquids (Date): 12/05/17 NPO Since - Liquids (Time): 09:15 NPO Since - Solids (Date): 12/04/17 NPO Since - Solids (Time): 18:30 - Smoking Hx Smoking Status: Former smoker ANE Labs/Vital Signs - Labs Result Diagrams: 12/05/17 06:40 12/05/17 06:40 - Vital Signs Blood Pressure: 153/81 Heart Rate: 74 Respiratory Rate: 16 O2 Sat (%): 95 Height: 170.18 cm Weight: 76.204 kg ANE Physical Exam - Airway Neck exam: spinal fusion - ASA Status ASA Status: III ANE Anesthesia Plan Anesthesia Plan: general endotracheal anesthesia Lines/Monitors: arterial line
[2017-12-05] MEDS ORDERED: fentaNYL 100 MCG/2 ML INJ ONE (11:39)
[2017-12-05] MEDS ORDERED: PROPOFOL 200 MG/20 ML VIAL ONE (11:39)
[2017-12-05] MEDS ORDERED: ROCURONIUM 50 MG/5 ML VIAL ONE (11:43)
[2017-12-05] MEDS ORDERED: METOCLOPRAMIDE 10 MG/2 ML VIAL ONE (11:43)
[2017-12-05] MEDS ORDERED: ONDANSETRON 4 MG/2 ML VIAL ONE (11:43)
[2017-12-05] MEDS ORDERED: HEPARIN 10,000 UNIT/10 ML MDV (1,000 UNIT/ML) ONE (11:43)
[2017-12-05] MEDS ORDERED: MIDAZOLAM 2 MG/2 ML VIAL ONE (11:55)
[2017-12-05] MEDS ORDERED: ceFAZolin 2 GM/SWFI 20 ML SYR IVP ONE (12:02)
[2017-12-05] MEDS ORDERED: HYDROmorphONE/DILAUDID 1 MG/ML INJ IVP PRN (13:54)
[2017-12-05] MEDS ORDERED: ONDANSETRON 4 MG/2 ML VIAL IVP PRN (13:54)
[2017-12-05] MEDS ORDERED: OXYCODONE/APAP 5/325 TAB PO PRN (13:54)
[2017-12-05] MEDS ORDERED: ENALAPRILAT DIHYDRATE 1.25 MG/ML VIAL IVP PRN (13:55)
[2017-12-05] MEDS ORDERED: SUGAMMADEX SODIUM 200 MG/2 ML VIAL IVP ONE (13:56)
[2017-12-05] MEDS ORDERED: NALOXONE HCL 0.4 MG/ML INJ ONE (13:59)
[2017-12-05] MEDS ORDERED: NALOXONE HCL 0.4 MG/ML INJ IVP PRN (14:10)
[2017-12-05] MEDS ORDERED: fentaNYL 100 MCG/2 ML INJ IVP PRN (14:10)
--- NOTE | 2017-12-05 14:11 | POSTANESTH ---
Post Anesthetic Evaluation Cardiovascular Status: Similar to Pre-Op Cond Respiratory Status: Normal, Stable Level of Consciousness/Mental Status: Can Participate in Eval Pain Control: Adequate, Prn Tx Ordered Nausea/Vomiting Control: Adequate, Prn Tx Ordered Complications Possibly Related to Anesthesia: None Noted
--- NOTE | 2017-12-05 14:28 | POSTOPPROG ---
Post Op Note Date of Operation: 12/05/17 Surgeon: Lincoln Patiño Gas Mask Inspector: Michelle Lopez Anesthesiologist: Orlin Abrams Anesthesia: GET(General Endotracheal) Pre-op Diagnosis: critical L carotid stenosis, TIAs Post-op Diagnosis: same Procedure: L CEA c EEG monitoring, shunt, and patch closure Findings: >90% stenotic focal plaque. no eeg changes. awoke martinez x 4 Inf/Abcess present in the surg proc area at time of surgery?: No EBL: Minimal Complications: none Specimen(s): plaque to path
[2017-12-05] MEDS: HYDROmorphONE/DILAUDID 2 MG/ML INJ IVP PRN ×2 (15:14→17:05)
[2017-12-05] MEDS: ACETAMINOPHEN 325 MG TAB PO PRN ×2 (16:05→22:29)
[2017-12-05] MEDS: WARFARIN SODIUM 5 MG TAB PO SCH (16:06)
--- NOTE | 2017-12-05 19:29 | HOSPPROG ---
Hospitalist Progress Note Assessment/Plan: DIAGNOSES: -severe carotid stenosis on the right, now status post CEA without complication -TIA -hyperlipidemia -acute on chronic kidney disease ease, improving here so far -history of mitral valve replacement, mechanical PLANS: -careful management of blood pressures -continue close monitoring of his wound and oozing of blood their -resume Coumadin and monitoring of INR; when safe per Dr. Patiño consider bridging with heparin to get his INR back in range for mechanical valve -continue IV hydration careful monitoring of renal function -statin therapy and will need outpatient monitoring of lipids -careful observation for any bleeding or other complications of his surgery overnight in the ICU SUBJECTIVE: I saw the patient in the intensive care unit today after his carotid endarterectomy Mild pain in his neck as postoperative, otherwise no specific complaints now OBJECTIVE Vitals reviewed: Fairly hypertensive postoperative requiring extra p.r.n. 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: Sinus rhythm Exam: alert oriented no focal cranial nerve or motor abnormalities His neck as typical postoperative bandage in place with some evidence of oozing of blood skin warm dry color ok resps not labored lungs clear BSs heart regular abd soft nondistended nontender, bowel sounds present limbs warm, no edema iv site ok Laboratory data: BUN improved to 25, creatinine stable 1.5 Electrolytes good CBC unremarkable INR is at 1.7 this morning Objective: Vital Signs Temp Pulse Resp BP Pulse Ox 36.4 C 79 11 L 160/66 H 97 12/05/17 15:19 12/05/17 18:18 12/05/17 18:00 12/05/17 18:19 12/05/17 18:00 Laboratory Results 12/05/17 06:40 12/05/17 06:40 12/04/17 12/05/17 12/06/17 06:59 06:59 06:59 Intake Total 810 571 7402 Output Total 1000 550 325 Balance -600 -212 1015 PT 20.8 SEC (12.0-15.0) H 12/05/17 06:40 INR 1.78 (0.83-1.16) H 12/05/17 06:40 - Time Spent With Patient Time Spent with Patient: greater than 35 minutes Time Spent with Patient: Greater than 35 minutes spent on this patients care, greater than 50% of time spent counseling, educating, and coordinating care regarding the above mentioned plan. ICD10 Worksheet Patient Problems: Problems Problem Status Onset Elevated serum creatinine Acute Transient cerebral ischemia Acute Atrial fibrillation Acute CAD (coronary artery disease) Acute Chest pain Acute Chest pain in adult Acute Coronary artery disease Acute H/O mechanical aortic valve replacement Acute History of right coronary artery stent placement Acute Troponin level elevated Acute
[2017-12-05] MEDS: NS 1,000 ML IV SCH (19:38)
[2017-12-05] MEDS: hydrALAZINE 20 MG/ML VIAL IVP PRN (20:04)
--- NOTE | 2017-12-05 21:20 | SOAPPROG ---
XOCHITL Progress Note Assessment/Plan: Assessment: 87-YEAR-OLD MALE WITH RECENT TIA AND HISTORY OF 2 OTHER TIA EPISODE FOUND TO HAVE A CRITICAL LEFT CAROTID STENOSIS ON ULTRASOUND PRESENTLY ALERT NEUROLOGICALLY INTACT WITH NO RESIDUAL SYMPTOMS PAST HISTORY OF TIAS, HYPERTENSION, AORTIC VALVE REPLACEMENT, ANTICOAGULATION, INTERMITTENT ATRIAL FIBRILLATION HEENT WITH NO BRUITS CHEST CLEAR COR REGULAR RHYTHM WITH AORTIC VALVE MURMUR NEUROLOGIC EXAM IN SEEMS TO BE PHYSIOLOGIC AT THIS TIME IMPRESSION CRITICAL LEFT CAROTID STENOSIS LIKELY CAUSE FOR HIS TIAS ALTHOUGH HE DOES HAVE INTERMITTENT ATRIAL FIBRILLATION AND ANTICOAGULATION WHICH COULD AND HYPERTENSION WHICH ALL COULD CONTRIBUTE TO A TIA Plan: WOULD RECOMMEND A CT ANGIOGRAM AND PROBABLE LEFT CAROTID ENDARTERECTOMY DEPENDING ON THE RESULTS OF THE CTA/RISKS AND OPTIONS FULLY DISCUSSED WITH THE PATIENT HIS 12/03/17 12:53 12/03/17 21:15 CTA CONFIRMS A GREATER THAN 90% LEFT CAROTID STENOSIS BUT NO DEFINITE CVA DEMONSTRATED ON BRAIN MRI LENGTHY DISCUSSION WITH THE FAMILY ABOUT THE RISKS AND OPTIONS OF SURGERY AND HAVE RECOMMENDED LEFT CAROTID ARTERECTOMY. WE WOULD NEED A CARDIAC EVALUATION WITH HIS HISTORY OF AORTIC VALVE PROBLEMS AND CONGESTIVE HEART FAILURE. I THINK HIS LONGEVITY IS GREATER ENOUGH TO WARRANT THE STROKE PREVENTION WITH A LEFT CAROTID ENDARTERECTOMY 12/05/17 21:20 Postop doing very well status post left CEA/neuro intact/wound minimal drainage/ afebrile/tolerating p.o. Objective: Vital Signs Temp Pulse Resp BP Pulse Ox 36.8 C 75 12 161/60 H 100 12/05/17 19:50 12/05/17 19:50 12/05/17 19:50 12/05/17 20:04 12/05/17 19:50 Laboratory Results 12/05/17 06:40 12/05/17 06:40 12/04/17 12/05/17 12/06/17 05:59 05:59 05:59 Intake Total 654 782 6190 Output Total 1000 550 325 Balance -600 -212 1015 PT 20.8 SEC (12.0-15.0) H 12/05/17 06:40 INR 1.78 (0.83-1.16) H 12/05/17 06:40 ICD10 Worksheet Patient Problems: Problems Problem Status Onset Elevated serum creatinine Acute Transient cerebral ischemia Acute Atrial fibrillation Acute CAD (coronary artery disease) Acute Chest pain Acute Chest pain in adult Acute Coronary artery disease Acute H/O mechanical aortic valve replacement Acute History of right coronary artery stent placement Acute Troponin level elevated Acute
[2017-12-05] MEDS: ASCORBIC ACID 500 MG TAB PO SCH (22:27)
[2017-12-05] MEDS: CHOLECALCIFEROL VIT D3 2,000 UNITS TAB/CAP PO SCH (22:27)
[2017-12-06] MEDS: CEPACOL LOZENGE PO PRN ×5 (04:40→23:41)
[2017-12-06 05:07] LABS: INR 1.32 (0.83-1.16); PROTIME(PATIENT) 16.6 SEC (12.0-15.0)
[2017-12-06] MEDS: ACETAMINOPHEN 325 MG TAB PO PRN ×3 (07:58→23:40)
[2017-12-06] MEDS: ATORVASTATIN CALCIUM 40 MG TAB PO SCH (08:00)
[2017-12-06] MEDS: ASPIRIN 81 MG CHEWABLE TAB PO SCH (08:00)
--- NOTE | 2017-12-06 09:36 | HOSPPROG ---
Hospitalist Progress Note Assessment/Plan: DIAGNOSES: -severe carotid stenosis on the right, now status post CEA without complication -TIA -HTN (norvasc, with prn hydralazine and ACEI) -hyperlipidemia (on Lipitor) -acute on chronic kidney disease ease, improving here so far -history of mitral valve replacement, mechanical; chronic anticoag with coumadin * reversed coumadin for surg, now resumed * not currently on any heparins PLANS: -should have further PT eval to assess ambulation and ability to do stairs before discharge home -bridge w lovenox until INR up if felt safe by surgery -continue careful management of blood pressures -continue close monitoring of his wound and oozing of blood their -statin therapy and will need outpatient monitoring of lipids -careful observation for any bleeding or other complications -wound care per Dr Patiño' team SUBJECTIVE: I saw the patient in the intensive care unit today minimal pain no neuro sxs, no fever sxs no card or resp sxs eating ok He has been up to commode with OT, did have one episode of imbalance pt notes he lives in 2 floor house, needs to go up one step to enter, no bedrooms on first floor so needs to go up stairs to get to bedroom OBJECTIVE Vitals reviewed: BPs much better overnight and this am, otherwise stable no fever 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, 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: Sinus rhythm Exam: alert oriented no focal cranial nerve or motor abnormalities His wound looks ok no bleeding at present skin warm dry color ok resps not labored lungs clear BSs heart regular abd soft nondistended nontender, bowel sounds present limbs warm, no edema iv site ok Laboratory data: Plts stable, Hg and chem panel pending INR 1.3 Objective: Vital Signs Temp Pulse Resp BP Pulse Ox 37.1 C 85 23 H 123/60 H 99 12/06/17 08:00 12/06/17 08:00 12/06/17 08:00 12/06/17 08:00 12/06/17 08:00 Laboratory Results 12/06/17 04:50 12/05/17 06:40 12/05/17 12/06/17 12/07/17 06:59 06:59 06:59 Intake Total 338 2890 Output Total 550 1175 Balance -212 1715 PT 16.6 SEC (12.0-15.0) H 12/06/17 04:50 INR 1.32 (0.83-1.16) H 12/06/17 04:50 - Time Spent With Patient Time Spent with Patient: greater than 35 minutes Time Spent with Patient: Greater than 35 minutes spent on this patients care, greater than 50% of time spent counseling, educating, and coordinating care regarding the above mentioned plan. ICD10 Worksheet Patient Problems: Problems Problem Status Onset Elevated serum creatinine Acute Transient cerebral ischemia Acute Atrial fibrillation Acute CAD (coronary artery disease) Acute Chest pain Acute Chest pain in adult Acute Coronary artery disease Acute H/O mechanical aortic valve replacement Acute History of right coronary artery stent placement Acute Troponin level elevated Acute
[2017-12-06] MEDS: WARFARIN SODIUM 5 MG TAB PO SCH (10:49)
[2017-12-06] MEDS ORDERED: BISACODYL 10 MG SUPP PR PRN (10:59)
[2017-12-06] MEDS ORDERED: POLYETHYLENE GLYCOL 3350 17 GM PKT PO PRN (10:59)
[2017-12-06] MEDS ORDERED: MAGNESIUM HYDROXIDE 30 ML UDCUP PO PRN (10:59)
[2017-12-06] MEDS ORDERED: LACTULOSE 20 GM/30 ML UDCUP PO PRN (10:59)
--- NOTE | 2017-12-06 12:31 | SOAPPROG ---
SOZARIA Progress Note Assessment/Plan: Assessment: 1. Coronary artery disease 2. Status post carotid endarterectomy left 3. Dyslipidemia 4. Hypertension This gentleman has severe coronary artery disease he has received 9 stents from our good friend Dr. Anuel Haskins. He has had an abnormal nuclear test in the past. he wanted to go for his carotid surgery with no further cardiac evaluation He he was able to walk around his house for 30 or 40 min. He tells me that he ran around his house his says she has not seen him running for years. However he has had surgery and so far has tolerated very well. It was our hope that he would tolerate surgery well and we fully support his choices. He has no obvious focal neurologic deficits. He is hematologically stable. I have met with his daughter and his and answered all her questions. All his questions have been answered. He has no heart failure He has no acute coronary syndrome He is having no significant arrhythmias Plan: 12/06/17 12:28 Subjective: He is feeling well today. He has had a surgery. His neck is sore His mild sore. His throat is sore. Sitting up in a chair. His taught what daughter and his are with him. Objective: Vital Signs Temp Pulse Resp BP Pulse Ox 37.1 C 83 23 H 100/46 L 94 12/06/17 08:00 12/06/17 09:59 12/06/17 08:00 12/06/17 09:59 12/06/17 09:59 Laboratory Results 12/06/17 04:50 12/06/17 10:25 12/05/17 12/06/17 12/07/17 05:59 05:59 05:59 Intake Total 338 2890 Output Total 550 1175 Balance -212 1715 PT 16.6 SEC (12.0-15.0) H 12/06/17 04:50 INR 1.32 (0.83-1.16) H 12/06/17 04:50 Physical Exam - Physical Exam General Appearance: alert, no apparent distress Respiratory: rhonchi, prolonged expiration Cardiac/Chest: regular rate, rhythm, systolic murmur Abdomen: non-tender, soft Skin: pallor Extremities: No pedal edema, No calf tenderness Neuro/Psych: normal mood/affect ICD10 Worksheet Patient Problems: Problems Problem Status Onset Elevated serum creatinine Acute Transient cerebral ischemia Acute Atrial fibrillation Acute CAD (coronary artery disease) Acute Chest pain Acute Chest pain in adult Acute Coronary artery disease Acute H/O mechanical aortic valve replacement Acute History of right coronary artery stent placement Acute Troponin level elevated Acute
--- NOTE | 2017-12-06 13:46 | SOAPPROG ---
SOZARIA Progress Note Assessment/Plan: Assessment: 87 y/o male with recent TIA and history of 2 other TIA episodes found to have a critical left carotid stenosis. S/p Left CEA 12/05 S: Doing well today. No complaints of pain. Eager to be discharged O: Afebrile Alert NAD Neck: Incision is dry and intact. There was some sanguinous drainage yesterday , but dressing is dry today. Neuro: CN 2-12 grossly intact Plan: Discussed with Dr. Patiño. Continue to monitor. Most likely discharge tomorrow. Will need to be on asa and Lipitor at home. Out of bed with PT and OT today. 12/06/17 13:41 Objective: Vital Signs Temp Pulse Resp BP Pulse Ox 37.1 C 83 23 H 100/46 L 94 12/06/17 08:00 12/06/17 09:59 12/06/17 08:00 12/06/17 09:59 12/06/17 09:59 Laboratory Results 12/06/17 04:50 12/06/17 10:25 12/05/17 12/06/17 12/07/17 05:59 05:59 05:59 Intake Total 338 2890 Output Total 550 1175 Balance -212 1715 PT 16.6 SEC (12.0-15.0) H 12/06/17 04:50 INR 1.32 (0.83-1.16) H 12/06/17 04:50 ICD10 Worksheet Patient Problems: Problems Problem Status Onset Elevated serum creatinine Acute Transient cerebral ischemia Acute Atrial fibrillation Acute CAD (coronary artery disease) Acute Chest pain Acute Chest pain in adult Acute Coronary artery disease Acute H/O mechanical aortic valve replacement Acute History of right coronary artery stent placement Acute Troponin level elevated Acute
[2017-12-06] MEDS: SENNOSIDES/DOCUSATE SODIUM TAB PO SCH ×2 (20:02→20:09)
[2017-12-06] MEDS: ASCORBIC ACID 500 MG TAB PO SCH ×2 (20:02→20:09)
[2017-12-06] MEDS: CHOLECALCIFEROL VIT D3 2,000 UNITS TAB/CAP PO SCH ×2 (20:02→20:09)
[2017-12-07 05:36] LABS: PLATELET COUNT 191 10^3/uL (150-400)
[2017-12-07 05:44] LABS: INR 1.75 (0.83-1.16); PROTIME(PATIENT) 20.5 SEC (12.0-15.0)
[2017-12-07] MEDS: ASPIRIN 81 MG CHEWABLE TAB PO SCH (08:47)
[2017-12-07] MEDS: ATORVASTATIN CALCIUM 40 MG TAB PO SCH (08:48)
[2017-12-07] MEDS: SENNOSIDES/DOCUSATE SODIUM TAB PO SCH ×2 (08:48→21:19)
[2017-12-07] MEDS ORDERED: WARFARIN SODIUM 5 MG TAB PO ONE (09:45)
[2017-12-07] MEDS: ACETAMINOPHEN 325 MG TAB PO PRN ×2 (10:13→21:17)
--- NOTE | 2017-12-07 14:08 | GOP ---
[f rep st] OPERATIVE REPORT DATE OF OPERATION: 12/05/2017 SURGEON: Lincoln Patiño MD EMERGENCY ROOM PHYSICIAN ASSISTANT: Michelle Lopez PA-C ANESTHESIOLOGIST: Orlin Abrams MD PREOPERATIVE DIAGNOSIS: Transient ischemic attack and critical left carotid stenosis. POSTOPERATIVE DIAGNOSIS: Transient ischemic attack and critical left carotid stenosis. PROCEDURE PERFORMED: Left carotid endarterectomy with EEG monitoring. FINDINGS: The patient was found to have a very short, approximately 1.5 cm, blockage of his anterior carotid artery. However, it was very tight, over 90%. DESCRIPTION OF PROCEDURE: The patient was taken to the operating room, where he was systemically hep arinized. He underwent satisfactory general endotracheal anesthesia after being heparinized. He had arterial line monitoring and EEG monitoring. He was prepped and draped in usual sterile fashion. I ncision was made along the anterior border of the left sternocleidomastoid muscle and carried down th rough the platysma and superficial fascia. Common facial vein was multiply ligated and divided and t he carotid arterial tree was exposed. He has a very short neck. This required division of the digas tric muscle for cephalad exposure, with much care to avoid injury to the hypoglossal nerve, which was freed up and retracted slightly away. Internal carotid, external carotid, and common carotid arteri es were all encircled with vessel loops and controlled, as was the inferior thyroid artery. The juanito ent was given additional heparin after adequate exposure was obtained. After adequate circulation ti me, the vessels were occluded. Arteriotomy was made in the common carotid artery and extended up thr ough the very tight plaque into the internal carotid artery. Good backflow was present in the product management intern al carotid. Expeditious endarterectomy was then done, removing this plaque, obtaining a good feather ed end at the internal carotid area. After the plaque was quickly removed, the shunt was put in plac e and flow was restored. The patient had no EEG changes before or after the shunt placement. A Dacr on patch was sutured in place with running Hemashield 6 suture. When the suture was nearly complete, the shunt was crossclamped and removed. All vessels were flushed and the suture line was completed. Flow was first established through the external carotid and then back through the internal carotid. Suture line appeared to be hemostatic. Heparin was reversed with protamine. Again, there were no EEG changes. He tolerated the procedure quite well. The wound was closed in layers using 3-0 Vicryl for the cervical fascia, and running 3-0 Vicryl for the platysma and subcu, and running 3-0 Monocryl suture for the skin. The superficial layers were infiltrated with 0.5% Marcaine. The wound had bee n sprayed with some topical thrombin as well. He tolerated the procedure quite well. He was taken t o the recovery room in good condition, moving all extremities. There were no complications. /[id number]/MODL
--- NOTE | 2017-12-07 14:38 | ASMTCMCOM ---
CM Note CM Note Notes: Reviewed chart. Pt cleared by PT to dc home. Met w/pt and family (he lives at home w/ and 2 adult children), has very good support at home. They do not feel the need for HHC at this time. Anticipate dc home w/family when medically ready. CM avail if any needs arise. Date Signed: 12/07/2017 02:37 PM Electronically Signed By:Jacklyn Shi RN
[2017-12-07] MEDS: WARFARIN SODIUM 5 MG TAB PO SCH (16:06)
--- NOTE | 2017-12-07 18:25 | HOSPPROG ---
Hospitalist Progress Note Assessment/Plan: DIAGNOSES: -severe carotid stenosis on the right, now status post CEA without complication -TIA -HTN (norvasc, with prn hydralazine and ACEI) -hyperlipidemia (on Lipitor) -acute on chronic kidney disease ease, improving here so far -history of mitral valve replacement, mechanical; chronic anticoag with coumadin * reversed coumadin for surg, now resumed * not currently on any heparins PLANS: -continue PT eval for ambulation and ability to do stairs before discharge home -extra dose of Coumadin today, follow INR closely -continue careful management of blood pressures -continue close monitoring of his wound -statin therapy and will need outpatient monitoring of lipids -careful observation for any bleeding or other complications -wound care per Dr Patiño' team SUBJECTIVE: Feels better today. 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: Sinus rhythm Exam: alert oriented no focal cranial nerve or motor abnormalities His wound looks ok no bleeding at present skin warm dry color ok resps not labored lungs clear BSs heart regular abd soft nondistended nontender, bowel sounds present limbs warm, no edema iv site ok Laboratory data: CBC and Chem panel stable, creatinine remains at 1.5 may be his baseline INR 1.7 Objective: Vital Signs Temp Pulse Resp BP Pulse Ox 36.6 C 84 16 152/69 H 94 12/07/17 15:45 12/07/17 15:45 12/07/17 15:45 12/07/17 15:45 12/07/17 15:45 Laboratory Results 12/07/17 04:54 12/06/17 10:25 12/06/17 12/07/17 12/08/17 06:59 06:59 06:59 Intake Total 2890 500 Output Total 1175 Balance 1715 500 PT 20.5 SEC (12.0-15.0) H 12/07/17 04:54 INR 1.75 (0.83-1.16) H 12/07/17 04:54 ICD10 Worksheet Patient Problems: Problems Problem Status Onset Elevated serum creatinine Acute Transient cerebral ischemia Acute Atrial fibrillation Acute CAD (coronary artery disease) Acute Chest pain Acute Chest pain in adult Acute Coronary artery disease Acute H/O mechanical aortic valve replacement Acute History of right coronary artery stent placement Acute Troponin level elevated Acute
[2017-12-07] MEDS: ASCORBIC ACID 500 MG TAB PO SCH (21:16)
[2017-12-07] MEDS: CHOLECALCIFEROL VIT D3 2,000 UNITS TAB/CAP PO SCH (21:16)
[2017-12-07] MEDS: hydrALAZINE 20 MG/ML VIAL IVP PRN (21:17)
[2017-12-08 06:12] LABS: INR 2.13 (0.83-1.16); PROTIME(PATIENT) 23.9 SEC (12.0-15.0)
[2017-12-08] MEDS: CEPACOL LOZENGE PO PRN (07:18)
[2017-12-08] MEDS: ATORVASTATIN CALCIUM 40 MG TAB PO SCH (07:19)
[2017-12-08] MEDS: ASPIRIN 81 MG CHEWABLE TAB PO SCH (07:19)
[2017-12-08] MEDS: SENNOSIDES/DOCUSATE SODIUM TAB PO SCH (07:20)
[2017-12-08 07:39] VITALS: BP 138/78; PULSE 78; RESP 18; TEMP 98.3; O2SAT 90
[2017-12-08] MEDS: ACETAMINOPHEN 325 MG TAB PO PRN (07:54)
--- NOTE | 2017-12-08 08:46 | SOAPPROG ---
SOAP Progress Note Assessment/Plan: Assessment/Plan: 87yo M s/p L CEA - VSS, HDS - Voice is still hoarse, tongut midline, no facial droop. Motor intact bilaterally - bruise stable along L neck and around incision, some swelling but no fluctuance - INR 2.13 today, still below baseline of 2.5 - Patient wants to go home. OK from surgical standpoint for home when medically appropriate. OK to shower 12/08/17 08:44 Subjective: wants to go home. Objective: Vital Signs Temp Pulse Resp BP Pulse Ox 36.8 C 78 18 138/78 H 90 L 12/08/17 07:36 12/08/17 07:36 12/08/17 07:36 12/08/17 07:36 12/08/17 07:36 Laboratory Results 12/07/17 04:54 12/06/17 10:25 12/07/17 12/08/17 12/09/17 05:59 05:59 05:59 Intake Total 500 400 Balance 500 400 PT 23.9 SEC (12.0-15.0) H 12/08/17 04:46 INR 2.13 (0.83-1.16) H 12/08/17 04:46 ICD10 Worksheet Patient Problems: Problems Problem Status Onset Elevated serum creatinine Acute Transient cerebral ischemia Acute Atrial fibrillation Acute CAD (coronary artery disease) Acute Chest pain Acute Chest pain in adult Acute Coronary artery disease Acute H/O mechanical aortic valve replacement Acute History of right coronary artery stent placement Acute Troponin level elevated Acute
--- NOTE | 2017-12-08 10:23 | PDDCSUM ---
Discharge Summary Discharge Summary: DISCHARGE DIAGNOSES: -severe carotid stenosis on the left, now status post CEA without complication -TIA -HTN (norvasc, with prn hydralazine and ACEI) -hyperlipidemia (on Lipitor) -acute on chronic kidney disease ease, improving here so far -history of mitral valve replacement, mechanical; chronic anticoag with coumadin * reversed coumadin for surg, now resumed * not currently on any heparins CONSULTANTS: Dr. Lincoln Chambers neurology Dr. Lincoln Joseph PROCEDURES: CT scan of head MRI of brain CT angio of head and neck Carotid endarterectomy on the right HOSPITAL COURSE SUMMARY: Mr. Navas presented after a 45 min episode of expressive aphasia. This was witnessed by his and daughter. CT and MRI of the brain showed a possible old small stroke on the left side but no acute stroke. CT angiogram of the head neck did show severe left carotid artery stenosis at 90% with 50% carotid stenosis on the right. The patient was felt to be a good surgical candidate and carotid endarterectomy was recommended to which he agreed. Dr. Patiño took the patient to the operating room where he had a successful left carotid endarterectomy without complications. His postoperative course has been uncomplicated though he has had some gait instability and so has stayed longer than usual. At this point he is now up and ambulating well and is stable to go home. There are no issues with his wound, his blood pressures in reasonable shape. Additionally the patient had an LDL 123 so he was started on some Lipitor. He does have mechanical mitral valve and is on chronic Coumadin. This was reversed for his surgery but his INR is now back up to 2.2 [address] He will need this followed. PENDING TEST RESULTS: None MEDICATION CHANGES: Addition of Lipitor FOLLOW-UP PLAN: With Dr. Patiño next week With Dr. Meyers within 2-4 weeks Greater than 35 minutes bedside and care coordination time today
--- NOTE | 2017-12-08 10:25 | PDIAF ---
- Diagnosis Diagnosis: TIA, carotid endarterectomy, cholest,htn, gait instability Code Status: Full Code - Medication Management Discharge Medications: Medications to Continue on Transfer Lisinopril [Zestril 5 mg (*)] 5 mg PO DAILY 09/16/16 [Last Taken 12/02/17] Warfarin Sodium [Coumadin 5MG (*)] 5 mg PO DAILY@2000 09/16/16 [Last Taken 12/01] Ascorbic Acid [Vitamin C] 1,000 mg PO HS 12/02/17 [Last Taken 12/01/17] Aspirin [Aspirin 81mg (*)] 81 mg PO DAILY 12/02/17 [Last Taken 11/25/17] Cholecalciferol Vit D3 [Vitamin D3 2000 units tab (OTC)] 2,000 units PO HS 12/02 [Last Taken 12/01/17] Herbals/Supplements -Info Only 1 ea PO DAILY 12/02/17 [Last Taken Unknown] amLODIPine BESYLATE [Norvasc 2.5 mg (*)] 2.5 mg PO DAILY 12/02/17 [Last Taken ] Acetaminophen [Tylenol 325mg (*)] 650 mg PO Q6 PRN tab 12/08/17 [Last Taken Unknown] Atorvastatin Calcium [Lipitor 40 mg (*)] 40 mg PO DAILY #30 tab 12/08/17 [Last Taken Unknown] Benzocaine/Menthol 15/4 [Cepacol Lozenge] 1 ea PO Q2 PRN lozenge 12/08/17 [ Last Taken Unknown] Discharge Medications: Refer to the Discharge Home Medication list for PRN reason. - Orders Services needed: Home Care, Registered Nurse, Physical Therapy Home Care Face to Face: I certify that this patient was under my care and that I had the required [id number] encounter meeting the encounter requirements on the discharge day. My findings support the fact that the patient is homebound as defined in Home Care Face to Face Continued: CMS Chapter 7 Medicare Benefits Manual 30.1.1 , The condition of the patient is such that there exists a normal inability to leave home and consequently, leaving home would require a considerable and taxing effort. Isolation Type: None Diet Recommendation: no restrictions on diet Diet Texture: Regular Texture Diet Wound Care Instructions: May shower. Do not peel bandages off of wound, leave them there until they fall off on their own. Do not bathe or soak wound until cleared by Dr. Patiño to do so. Contact Dr. Lincoln Patiño promptly for any problems or concerns with the wound - Follow Up Care Current Providers and Referrals: Lincoln Patiño MD [Medical Doctor] - follow up in 10 days Lorraine Meyers MD [[facility] [place] Primary Care Provider] -
[2017-12-08] MEDS: WARFARIN SODIUM 5 MG TAB PO SCH (16:18)
--- NOTE | 2017-12-09 14:01 | GCON ---
[f rep st] CONSULTATION DATE OF CONSULTATION: 12/03/2017 HISTORY: The patient is an 87-year-old male with recent TIA and history of 2 other TIA episodes in t he past. He was found to have a highly critical left carotid stenosis on ultrasound. At the present time, he is alert and intact with no residual symptoms. PAST MEDICAL HISTORY: Includes hypertension, atrial fibrillation, aortic valve replacement and is pr esently on anticoagulation and has had the history of the other TIAs. ALLERGIES: No known allergies. MEDICATIONS: Include Coumadin and a blood pressure medication. PHYSICAL EXAMINATION: GENERAL: An alert, cooperative 87-year-old male, who is in no acute distress. VITAL SIGNS: Afebrile. HEAD/NECK: Nonicteric, with no adenopathy and no carotid bruits. Neck is fairly fixed. Pupils are normal. CHEST: Clear to auscultation and percussion. CARDIAC: Irregula r rhythm with an aortic valve murmur. EXTREMITIES: Benign with full range of motion, full pulses. ABDOMEN: Soft and nontender without masses, organomegaly. NEURO: Physiologic and symmetric at this point, with intact cranial nerves and symmetrical motor function. He is oriented. PSYCHIATRIC: Al ert, oriented, and cooperative. SKIN: No rashes or major lesions. IMPRESSION: Critical left carotid stenosis, most likely the cause of his recurrent transient ischemi c attacks. I would recommend a CT angiogram for better delineation and probable carotid endarterecto my. The risks and options have been fully discussed with the patient and his . He is somewhat h esitant but willing to get the CT angiogram. PLAN: CT angiogram and probable left carotid endarterectomy. /[id number]/MODL
== END 2017-12-08 17:06 | disposition home or self-care (01) | DRG 38 ==
LOC: F3N 17:58 → F2N 12-05 11:02 → F3E 12-06 13:43
PROVIDERS: ADMIT Internal Medicine; ATTEND Internal Medicine
PROC: 30233K1 Transfusion of Nonautologous Frozen Plasma into Peripheral Vein, Percutaneous Approach (ICD-10-PCS; 2017-12-05)
PROC: 03CL0ZZ Extirpation of Matter from Left Internal Carotid Artery, Open Approach (ICD-10-PCS; principal; 2017-12-05 11:45)
DX: I65.22 Occlusion and stenosis of left carotid artery (principal); N17.9 Acute kidney failure, unspecified; R47.01 Aphasia; I12.9 Hypertensive chronic kidney disease with stage 1 through stage 4 chronic kidney disease, or unspecified chronic kidney disease; N18.3 Chronic kidney disease, stage 3 (moderate); E78.5 Hyperlipidemia, unspecified; N40.0 Benign prostatic hyperplasia without lower urinary tract symptoms; I48.0 Paroxysmal atrial fibrillation; Z95.2 Presence of prosthetic heart valve; Z95.5 Presence of coronary angioplasty implant and graft; Z79.01 Long term (current) use of anticoagulants; Z86.73 Personal history of transient ischemic attack (TIA), and cerebral infarction without residual deficits
CPT/HCPCS: 82947-QW; 85520-90; 92523-GN; 97116-GP; 97161-GP; 97166-GO; 97530-GO; 97530-GP; 97535-GO; C1768; G8978-GP-CI; G8979-GP-CI; G8980-GP-CI; G8987-GO-CJ; G8988-GO-CI; G9168-GO-CI; G9169-GN-CI; G9170-GN-CI; J0360; J0690; J1170; J1644; J2250; J2310; J2405; J2704; J2720; J2765; J3010; P9016; P9017; Q9967

== ENCOUNTER 2018-12-31 15:28 | Emergency (ER) | payer OTHER, BC ==
--- NOTE | 2018-12-31 15:59 | EDPHY ---
H & P Stated Complaint: c/o aphasia/word searching lasting approx 30 mins Time Seen by Provider: 12/31/18 15:45 HPI/ROS: CHIEF COMPLAINT: Garbled speech HISTORY OF PRESENT ILLNESS: The patient is an 88-year-old man who reports history of 3 TIAs involving his speech. He and his state that this afternoon between 2:30 and 3 p.m. he had garbled speech. Not slurred speech and no trouble with word finding but his states his words were somewhat nonsensical. No facial droop. No trouble ambulating different than baseline. No arm or leg weakness. The patient states that his symptoms resolved after about half an hour. He states that his symptoms are similar to previous TIAs. He is on Coumadin for history of mechanical valve. He also has history of multiple cardiac stents and left-sided carotid endarterectomy. He has residual 50% blockage on his right carotid artery. He states that he has been taking his Coumadin faithfully. He also fell 2 nights ago and hit his head on the bathroom medicine cabinet and broke it. He denies headache. He denies neck pain. He denies other injuries. He denies chest pain or shortness of breath. He was feeling well this morning until the symptoms occurred. Severity: Moderate Modifying factors: Now resolved REVIEW OF SYSTEMS: Constitutional: denies: chills, fever, recent illness, recent injury EENTM: denies: blurred vision, double vision, nose congestion Respiratory: denies: cough, shortness of breath Cardiac: denies: chest pain, irregular heart rate, lightheadedness, palpitations Gastrointestinal/Abdominal: denies: abdominal pain, diarrhea, nausea, vomiting, blood streaked stools Genitourinary: denies: dysuria, frequency, hematuria, pain Musculoskeletal: denies: joint pain, muscle pain Skin: denies: lesions, rash, jaundice, bruising Neurological: See HPI denies: headache, numbness, paresthesia, tingling, dizziness, weakness Hematologic/Lymphatic: denies: blood clots, easy bleeding, easy bruising Immunologic/allergic: denies: HIV/AIDS, transplant 10 systems reviewed and negative except as noted EXAM: GENERAL: Well-appearing, well-nourished and in no acute distress. HEAD: Atraumatic, normocephalic. EYES: Pupils equal round and reactive to light, extraocular movements intact, sclera anicteric, conjunctiva are normal. ENT: TMs normal, nares patent, oropharynx clear without exudates. Moist mucous membranes. NECK: Normal range of motion, supple without lymphadenopathy or JVD. LUNGS: Breath sounds clear to auscultation bilaterally and equal. No wheezes rales or rhonchi. HEART: Regular rate and rhythm without murmurs, rubs or gallops. ABDOMEN: Soft, nontender, normoactive bowel sounds. No guarding, no rebound. No masses appreciated. BACK: No CVA tenderness, no spinal tenderness, step-offs or deformities EXTREMITIES: Normal range of motion, no pitting or edema. No clubbing or cyanosis. NEUROLOGICAL: NIH stroke score 0. Cranial nerves II through XII grossly intact. Normal speech, able to ambulate at his baseline. 5/5 strength, normal movement in all extremities, normal sensation, normal reflexes PSYCH: Normal mood, normal affect. SKIN: Warm, dry, normal turgor, no visible rashes or lesions. Source: Patient, Family Exam Limitations: No limitations - Personal History Tetanus Vaccine Date: 2004 - Medical/Surgical History Hx Asthma: No Hx Chronic Respiratory Disease: No Hx Diabetes: No Hx Cardiac Disease: Yes Hx Renal Disease: No Hx Cirrhosis: No Hx Alcoholism: No Hx HIV/AIDS: No Hx Splenectomy or Spleen Trauma: No Other PMH: hypertension, hyperlipidemia, MECH. HEART VALVE, CAD, angina, peripheral neuropathy, lower left abdominal hernia of the small bowel, hernia repair x2, TIA x2, enlarged prostate, chronic constipation, remote fall with subdural, coronary stents x6. - Family History Significant Family History: No pertinent family hx - Social History Smoking Status: Former smoker Alcohol Use: Sober Drug Use: None Constitutional: Initial Vital Signs Temperature (C) 36.4 C 12/31/18 15:36 Heart Rate 84 12/31/18 15:36 Respiratory Rate 18 12/31/18 15:36 Blood Pressure 153/81 H 12/31/18 15:36 O2 Sat (%) 94 12/31/18 15:36 O2 Delivery Mode Room Air Allergies/Adverse Reactions: No Known Allergies Allergy (Verified 12/31/18 15:41) Home Medications: Medication Instructions Recorded Warfarin Sodium [Coumadin 5MG (*)] 5 mg PO DAILY 09/16/16 Ascorbic Acid [Vitamin C] 1,000 mg PO DAILY 12/02/17 Cholecalciferol Vit D3 [Vitamin D3 2,000 units PO DAILY 12/02/17 2000 units tab (OTC)] Herbals/Supplements -Info Only 1 ea PO DAILY 12/02/17 amLODIPine BESYLATE [Norvasc 2.5 2.5 mg PO DAILY 12/02/17 mg (*)] Atorvastatin Calcium [Lipitor 10 10 mg PO DAILY 12/31/18 mg (*)] [place]-3/Dha/Epa/Fish Oil [Fish Oil 1 each PO DAILY 12/31/18 1,000 mg Softgel] Ubidecarenone [Coq-10] 30 mg PO DAILY 12/31/18 Medical Decision Making - Diagnostics EKG Interpretation: An EKG obtained and was read and documented in trace view. Please see trace view for full reading and report. Sinus rhythm with first-degree block, right bundle branch block, similar to previous Imaging: Discussed imaging studies w/ bingo caller Radiologist ED Course/Re-evaluation: Patient is completely asymptomatic. I offered admission because he continues to have TIAs despite maximal medical treatment. He declines this and states that he does not want any further procedures either. Will call Neurology to ensure early follow-up. He does wish to have carotid ultrasounds done just to see the status of his previous surgery. 6:10 p.m. I discussed the case with Dr. Singh Daniel from Neurology who will follow up with the patient in the next few days. 7:40 p.m. we discussed the carotid Doppler results. The left side remains open. The right side remains 50% which is unchanged. The patient had an echo in May which she reports was normal. He is eager to go home and declines admission. Discussed follow-up with Neurology this week. Differential Diagnosis: Partial list of the Differential diagnosis considered include but were not limited to; sciatica, degenerative disc disease, kidney stone, diverticulitis, urinary tract infections and although unlikely based on the history and physical exam, I also considered volvulus, dissection, ischemia, abscess, pyelonephritis. I discussed these differential diagnoses and the plan with the patient as well as the usual and expected course. The patient understands that the diagnosis is provisional and that in medicine we are not always correct and that further workup is often warranted. Usual and customary warnings were given. All of the patient's questions were answered. The patient was instructed to return to the emergency department should the symptoms at all worsen or return, otherwise to followup with the physician as we discussed. - Data Points Laboratory Results: Laboratory Results 12/31/18 15:42 12/31/18 15:42 Medications Given: Discontinued Medications Sodium Chloride (Ns) 1,000 mls @ 0 mls/hr IV ONCE ONE; Wide Open PRN Reason: Protocol Stop: 12/31/18 16:01 Last Admin: 12/31/18 16:14 Dose: 1,000 mls Point of Care Test Results: Chemistry 12/31/18 16:15 POC Troponin I 0.00 ng/mL ng/mL (0.00-0.08) Departure - Departure Disposition: Home, Routine, Self-Care Clinical Impression: Transient cerebral ischemia Qualifiers: Transient cerebral ischemia type: unspecified Qualified Code(s): G45.9 - Transient cerebral ischemic attack, unspecified Condition: Fair Instructions: Transient Ischemic Attack (ED) Referrals: Lorraine Meyers MD [Primary Care Provider] - As per Instructions Singh Daniel MD [Medical Doctor] - As per Instructions
[2018-12-31] MEDS ORDERED: NS 1,000 ML IV ONE (16:00)
--- NOTE | 2018-12-31 16:06 | CPEKG ---
Test Reason : OPEN Blood Pressure : / mmHG Vent. Rate : 082 BPM Atrial Rate : 084 BPM P-R Int : 218 ms QRS Dur : 135 ms QT Int : 431 ms P-R-T Axes : -79 -52 063 degrees QTc Int : 504 ms Sinus or ectopic atrial rhythm Borderline prolonged TX interval RBBB and LAFB Probable lateral infarct, old Confirmed by Margarita Cortez ([id number]) on 12/31/2018 4:05:37 PM Referred By: MARGARITA CORTEZ Confirmed By:Margarita Cortez
[2018-12-31 16:09] LABS: PLATELET COUNT 246 10^3/uL (150-400)
[2018-12-31 16:22] LABS: INR 3.27 (0.83-1.16); PROTIME(PATIENT) 31.6 SEC (12.0-15.0)
[2018-12-31 20:05] VITALS: BP 164/89
== END 2018-12-31 20:07 | disposition home or self-care (01) ==
DX: G45.9 Transient cerebral ischemic attack, unspecified (principal); E86.9 Volume depletion, unspecified; I48.0 Paroxysmal atrial fibrillation; E78.5 Hyperlipidemia, unspecified; Z95.2 Presence of prosthetic heart valve; Z95.5 Presence of coronary angioplasty implant and graft; Z86.73 Personal history of transient ischemic attack (TIA), and cerebral infarction without residual deficits; Z79.01 Long term (current) use of anticoagulants
CPT/HCPCS: 84484-ER

== ENCOUNTER 2019-02-04 14:46 | Inpatient (IN) | payer OTHER, BC ==
--- NOTE | 2019-02-04 15:10 | EDPHY ---
H & P Stated Complaint: right sided pain after fall 1 week ago, multiple falls recently Time Seen by Provider: 02/04/19 14:55 HPI/ROS: Chief Complaint: Right hip pain HPI: 88-year-old male had a mechanical fall 1 week ago. Landed on his right side. He has had pain in his right hip since then. He is having extreme difficulty getting around the house. He is able to only get to the bathroom and back with the use of a cane. He has stairs in his house has not been able to use the stairs. He has a history of a mechanical valve and is on Coumadin. Also has a history of peripheral neuropathy. Did not his head. No fevers or chills. No cough. No nausea or vomiting. No new numbness or weakness. No urinary urgency or frequency. No back pain. ROS: 10 systems were reviewed and were negative except those elements noted in the HPI. PMH: Chemical valve replacement, peripheral neuropathy Social History: No smoking, no alcohol, no recreational drug use Family History: non-contributory Physical Exam: Gen: Awake, Alert, No Distress HEENT: Nose: no rhinorrhea Eyes: PERRLA, EOMI Mouth: Moist mucosa Neck: Supple, no JVD Chest: nontender, lungs clear to auscultation Heart: S1, S2 normal, no murmur Abd: Soft, non-tender, no guarding Back: no CVA tenderness, no midline tenderness Ext: no edema, patient has tenderness over the right lateral hip. He is able to flex and extend with some discomfort. Leg is not shortened. Is not rotated. He has 2+ dorsalis pedis pulses. Sensations intact but is diminished in bilateral feet at baseline, he is symmetrical. No deformity Skin: no rash Neuro: CN II-XII intact, Sensation grossly intact, Strength 5/5 in bilateral upper and lower extremities - Personal History Tetanus Vaccine Date: 2004 - Medical/Surgical History Hx Asthma: No Hx Chronic Respiratory Disease: No Hx Diabetes: No Hx Cardiac Disease: Yes Hx Renal Disease: No Hx Cirrhosis: No Hx Alcoholism: No Hx HIV/AIDS: No Hx Splenectomy or Spleen Trauma: No Other PMH: hypertension, hyperlipidemia, MECH. HEART VALVE, CAD, angina, peripheral neuropathy, lower left abdominal hernia of the small bowel, hernia repair x2, TIA x2, enlarged prostate, chronic constipation, remote fall with subdural, coronary stents x6. - Social History Smoking Status: Former smoker Constitutional: Initial Vital Signs Temperature (C) 36.6 C 02/04/19 14:49 Heart Rate 82 02/04/19 14:49 Respiratory Rate 18 02/04/19 14:49 Blood Pressure 149/91 H 02/04/19 14:49 O2 Sat (%) 96 02/04/19 14:49 O2 Delivery Mode Room Air Allergies/Adverse Reactions: No Known Allergies Allergy (Verified 02/04/19 14:48) Home Medications: Medication Instructions Recorded Warfarin Sodium [Coumadin 5MG (*)] 5 mg PO DAILY 09/16/16 Medical Decision Making - Diagnostics Imaging Results: Imaging Impressions Hip X-Ray 02/04/19 15:12 Impression: Demineralization. No discernible acute fracture. Comment: If patient is unable to bear weight, recommend noncontrast CT of the pelvis to optimally characterize. Pelvis CT 02/04/19 16:17 Impression: No evidence of definite right hip fracture, dislocation or significant degenerative changes. Findings and recommendations discussed with Emergency Department physician, Red Plasencia MD, at 1720 hour, 02/04/2019. Final report concurs with initial preliminary interpretation. ED Course/Re-evaluation: 88-year-old with right leg pain status post fall a week ago. Has been having extreme difficulty ambulating. Have stairs nose home. X-ray and CT are negative. He is unsafe in his current environment. I have discussed with Dr. Marinelli, hospitalist. She will admit to her service for further care. Departure - Departure Disposition: [facility] Clinical Impression: Hip pain Condition: Fair Referrals: Lorraine Meyers MD [Primary Care Provider] - As per Instructions
[2019-02-04] MEDS ORDERED: ONDANSETRON DISINTEGRATING 4 MG TAB PO PRN (17:48)
[2019-02-04] MEDS ORDERED: ONDANSETRON 4 MG/2 ML VIAL IVP PRN (17:48)
[2019-02-04] MEDS ORDERED: ACETAMINOPHEN 325 MG TAB PO PRN ×2 (17:48→18:06)
[2019-02-04 18:11] LABS: PLATELET COUNT 297 10^3/uL (150-400)
[2019-02-04] MEDS ORDERED: ACETAMINOPHEN 325 MG TAB PO SCH (18:15)
[2019-02-04 18:32] LABS: CREATINE KINASE 58 IU/L (0-224)
[2019-02-04 18:36] LABS: INR 2.39 (0.83-1.16); PROTIME(PATIENT) 24.9 SEC (12.0-15.0)
--- NOTE | 2019-02-04 18:49 | GHP ---
[f rep st] HISTORY AND PHYSICAL DATE OF ADMISSION: 02/04/2019 CHIEF COMPLAINT: Right hip pain. HISTORY OF PRESENT ILLNESS: An 88-year-old male with TIA x3, mechanical aortic valve, on Coumadin, coronary disease, CKD, paroxysmal atrial fibrillation, presents with a right hip pain. He had a mechanical fall a week ago in the bathroom, but he cannot recall the events. He does not think he had prodromal chest pain, palpitations, shortness of breath, or dizziness. Since that time, he has been having difficulty getting around his house, and has been staying upstairs. He is only able to get to the bathroom and back to his bed with the use of a cane he started using today. He has felt weak in the legs. Pain is worse with movement, minimal when lying still. He stopped a few of his medications a couple of weeks ago due to dizziness, unclear what these medications are, but suspect antihypertensives. He is still taking his Coumadin. In the ER, hip x-ray and CT were negative for acute fracture. Per , he has had 3 falls within the last 2 months. The first was when he fell off the sofa and was found between that and the coffee table. Another one was in the bathroom, with which he broke the mirror, again unclear circumstances as she was not present. REVIEW OF SYSTEMS: I completed a 10-point review of systems, negative except as noted HPI. PAST MEDICAL HISTORY: 1. TIA x3. 2. Mechanical aortic valve. 3. CAD. 4. CKD 3. 5. Atrial fibrillation. 6. Aortic stenosis. 7. Hypertension. PAST SURGICAL HISTORY: Left CEA, mechanical aortic valve replacement, cataract , bilateral inguinal hernias. SOCIAL HISTORY: Has 4 kids, 5 grandkids. Has been 51 years. Lives in [place]. 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 No alcohol, tobacco, or illicits. FAMILY HISTORY: Dad, stroke. Mother of old age. ALLERGIES: None. HOME MEDICATIONS: 1. Tylenol p.r.n. 2. Coumadin. PHYSICAL EXAMINATION: VITAL SIGNS: Temperature 36.8, blood pressure is 158/93 , heart rate in the 80s, respirations 18, 96% on room air. GENERAL: He is in no acute distress. HEENT: PERRLA. Moist mucous membranes. CV: Regular rate and rhythm. LUNGS: Clear anteriorly. ABDOMEN: Soft, nontender. : No Peace. MUSCULOSKELETAL: Tenderness over right hip and thigh, no bruising. NEURO: 2 through 12 intact. PSYCH: Is alert and answering questions appropriately. LABS: WBC 8, hemoglobin , platelets 297. Coags are pending. BMP is pending. Pelvis CT: No evidence of definite right hip fracture. Hip x-ray: Demineralization. No fracture. ASSESSMENT AND PLAN: 1. Recent mechanical fall: unable to ambulate safely at home. Pain control with heating pad, Tylenol. Physical Therapy and Occupational Therapy to evaluate. 2. History of transient ischemic attack. he self-stopped his statin due to muscle cramping. Check a CK. 3. Chronic kidney disease 3. Cr 1.6 (at baseline) 4. Atrial fibrillation. Coumadin. 5. Aortic stenosis. History of mechanical aortic valve. INR is 2.4. Spoke with Dr. Ramirez; bridge not warranted. Cont coumadin, repeat INR. 6. Hypertension. He self-discontinued medications. 7. Diet: Regular. 8. Deep venous thrombosis prophylaxis. He is on Coumadin. DISPOSITION: Patient warrants inpatient admission given falls which places him at risk for subsequent harm, requiring PT and OT. /[id number]/MODL MTDD
[2019-02-04] MEDS ORDERED: WARFARIN SODIUM 4 MG TAB PO SCH (19:30)
[2019-02-04] MEDS ORDERED: WARFARIN SODIUM 2 MG TAB PO ONE (20:15)
[2019-02-05] MEDS ORDERED: Herbals/Supplements -Info Only PO SCH (09:00)
[2019-02-05] MEDS ORDERED: GABAPENTIN 300 MG CAP PO ONE (12:11)
--- NOTE | 2019-02-05 14:37 | ASMTCMCOM ---
CM Note CM Note Notes: Pt discussed in rounds and chart reviewed for discharge. Brandon is an 88yr old with TIAs admitted with falls, inability to ambulate and right hip pain. PMH mechanical valve replacement & on Coumadin, CAD, CKD, & A Fib. Pt lives with his here in [place] and has family support. PT/OT recommend HHC. Pt/ Okay with [facility] and they have been notified. CM available for needs. PLAN: Likely home with and [facility] when medically cleared. Date Signed: 02/05/2019 02:36 PM Electronically Signed By:La Nena Cintron
[2019-02-05] MEDS ORDERED: WARFARIN SODIUM 4 MG TAB PO SCH (16:00)
[2019-02-05] MEDS ORDERED: WARFARIN SODIUM 5 MG TAB PO SCH (16:00)
--- NOTE | 2019-02-05 18:53 | HOSPPROG ---
Hospitalist Progress Note Assessment/Plan: * Leg pain post fall -possible radiculopathy - gabapentin started -no residual hip pain - pelvic CT negative -PT/OT - suspect he will be safe to return home in am * Mechanical AVR -continue warfarin - increase dose 5mg * Afib -rate okay off meds * HTN -self DC meds due to dizziness -watch BP here on current regimen * CKD -at baseline creatinine 1.6 Subjective: Pain improved, now only in leg, radiates below the knee Objective: Vital Signs Temp Pulse Resp BP Pulse Ox 36.4 C 81 16 133/74 H 94 02/05/19 14:47 02/05/19 14:47 02/05/19 14:47 02/05/19 14:47 02/05/19 14:47 Laboratory Results 02/04/19 17:57 02/04/19 17:57 PT 24.9 SEC (12.0-15.0) H 02/04/19 17:57 INR 2.39 (0.83-1.16) H 02/04/19 17:[address] - no fracture Old chart reviewed - last ECHO about 1 year ago - no at that time - Physical Exam Constitutional: no apparent distress, appears nourished, not in pain Cardiovascular: regular rate and rhythym, no murmur, rub, or gallop Respiratory: no respiratory distress, no rales or rhonchi, clear to auscultation Gastrointestinal: normoactive bowel sounds, soft, non-tender abdomen, no palpable masses Skin: no rashes or abrasions, no fluctuance, no induration Neurologic: AAOx3, sensation intact bilaterally Psychiatric: interacting appropriately, not anxious, not encephalopathic, thought process linear ICD10 Worksheet Patient Problems: Problems Problem Status Onset Hip pain Acute Atrial fibrillation Acute CAD (coronary artery disease) Acute Chest pain Acute Chest pain in adult Acute Coronary artery disease Acute Elevated serum creatinine Acute H/O mechanical aortic valve replacement Acute History of right coronary artery stent placement Acute Transient cerebral ischemia Acute Troponin level elevated Acute
[2019-02-06 05:27] LABS: INR 2.47 (0.83-1.16); PROTIME(PATIENT) 25.5 SEC (12.0-15.0)
[2019-02-06 08:02] VITALS: BP 138/84
[2019-02-06] MEDS ORDERED: GABAPENTIN 300 MG CAP PO SCH (09:00)
--- NOTE | 2019-02-06 09:22 | PDIAF ---
- Diagnosis Diagnosis: falls, leg pain Code Status: Do Not Resuscitate - Medication Management Discharge Medications: electronically signed and located in the Home Medication List. - Orders Services needed: Home Care, Registered Nurse, Certified Proration Clerk, Physical Therapy, Occupational Therapy Home Care Face to Face: I certify that this patient was under my care and that I had the required [id number] encounter meeting the encounter requirements on the discharge day. My findings support the fact that the patient is homebound as defined in Home Care Face to Face Continued: CMS Chapter 7 Medicare Benefits Manual 30.1.1 , The condition of the patient is such that there exists a normal inability to leave home and consequently, leaving home would require a considerable and taxing effort. Isolation Type: None Diet Recommendation: no restrictions on diet Additional Instructions: Check INR early next week on new dose coumadin - Labs/Radiology PT/INR Date: 02/10/19 - Follow Up Care Current Providers and Referrals: Lorraine Meyers MD [Primary Care Provider] - As per Instructions
--- NOTE | 2019-02-06 09:37 | ASMTLACE ---
LACE Length of stay for Answers: 2 days current admission Acuity / Level of Answers: Yes Care: Did the patient have an inpatient admission? Comorbidities - select Answers: Cerebrovascular disease all that apply (CVA, TIA, aneurysms, vasc ular dementia) Coronary Artery Disease Moderate or severe liver or renal disease Other Notes: HTN; HLD # of Emergency department Answers: 1-2 visits in the last 6 months Score: 14 Date Signed: 02/06/2019 09:36 AM Electronically Signed By:Mahsa Hawkins RN
--- NOTE | 2019-02-06 09:43 | ASMTDCNOTE ---
Case Management Discharge Discharge Order Complete? Answers: Yes Patient to Obtain Answers: Independently Medications Transportation Arranged Answers: Family/Friends Faxed Final Orders Answers: Yes Family Notified Answers: Yes Discharge Comments Notes: Patient discharged home with family. [facility] will call to set up home health visits. Date Signed: 02/06/2019 09:42 AM Electronically Signed By:Mahsa Hawkins RN
[2019-02-06] MEDS ORDERED: WARFARIN SODIUM 4 MG TAB PO SCH ×2 (16:00→19:25)
--- NOTE | 2019-02-06 19:32 | GDS ---
[f rep st] DISCHARGE SUMMARY DISCHARGE DIAGNOSES: 1. Leg pain after a fall. 2. Mechanical aortic valve replacement. 3. Hypertension. 4. Atrial fibrillation. 5. Chronic kidney disease. Baseline creatinine 1.6. HISTORY: Brandon is an 88-year-old male, who has been falling at home. He initially presented with hip pain. CT scan was negative for fracture. The hip pain subsequently went away, but he developed some leg pain radiating down below the knee, which was felt to be a possible radiculopathy. He was s tarted on gabapentin and did have some improvement. PT and OT saw him in consultation, and thought h bibi would be safe to return home with home health. He recently changed his warfarin dose down to 4 mg because he thought it would be cheaper, but his IN R was subtherapeutic on presentation. We counseled him and have now increased his warfarin back up t o 5 mg p.o. daily. DISCHARGE MEDICATIONS: Please see computerized record for full detailed list. New medications: 1. Gabapentin 300 mg p.o. twice daily. 2. Warfarin 5 mg p.o. daily. ADDITIONAL DISCHARGE INSTRUCTIONS: 1. Recheck INR early next week on new dose Coumadin. 2. Home health arranged. Greater 30 minutes' time spent arranging this discharge. Patient seen and examined by me on the day of discharge. /[id number]/MODL
--- NOTE | 2019-02-07 11:16 | PDMN ---
Medical Necessity Medical necessity: Pt meets IP criteria per & [facility] General Discharge Criteria; est los >2 mn for eval/tx of hip pain s/p fall w/leg pain radiating down below knee r/t possible radiculopathy; unable to ambulate safely at home; requiring further monitoring, initiation of Gabapentin, therapies & CM consult for dc planning; comorbid advanced age, TIA, CKD 3, CAD, AFIB, mechanical valve on AC; per H&P & order 02/04/19
== END 2019-02-06 11:16 | disposition home health service (06) | DRG 556 ==
LOC: F1N 19:54
PROVIDERS: ADMIT Internal Medicine; ATTEND Internal Medicine
DX: M25.551 Pain in right hip (principal); G62.9 Polyneuropathy, unspecified; I12.9 Hypertensive chronic kidney disease with stage 1 through stage 4 chronic kidney disease, or unspecified chronic kidney disease; N18.3 Chronic kidney disease, stage 3 (moderate); I48.91 Unspecified atrial fibrillation; I35.0 Nonrheumatic aortic (valve) stenosis; E78.5 Hyperlipidemia, unspecified; I25.10 Atherosclerotic heart disease of native coronary artery without angina pectoris; K59.00 Constipation, unspecified; N40.0 Benign prostatic hyperplasia without lower urinary tract symptoms; Z95.2 Presence of prosthetic heart valve; Z79.01 Long term (current) use of anticoagulants; Z86.73 Personal history of transient ischemic attack (TIA), and cerebral infarction without residual deficits; Z95.5 Presence of coronary angioplasty implant and graft; Z91.81 History of falling
CPT/HCPCS: 97116-GP; 97161-GP; 97166-GO; 97530-GP; 97535-GO